=== PATIENT | male | born 1965 | race Caucasian/White ===

== ENCOUNTER → 2018-07-03 09:13 | Outpatient (CLI) | payer BC, SELFPAY | PROVIDERS: PCP Family Medicine; Visit Provider Family Medicine | DX: R07.9 Chest pain, unspecified (principal); R00.2 Palpitations; E66.01 Morbid (severe) obesity due to excess calories | CPT/HCPCS: 93017 ==

== ENCOUNTER → 2018-07-14 07:25 | Outpatient (CLI) | payer BC, SELFPAY ==
--- NOTE | 2018-07-14 07:27 | NM_ITS ---
CARDIOLITE SPECT MYOCARDIAL PERFUSION [facility], REST AND STRESS: History: Obesity, abnormal stress test, Procedure: Patient exercised on Loi protocol 9 minutes and 11 seconds, resting heart rate was 62 bpm resting blood pressure 161/86, with exercise maximum heart rate achieved was 1 49 bpm which is greater than 85% of the maximum predicted heart rate and a blood pressure was 206/71. Test was started due to fatigue patient denied any complained of chest pain. Patient has good exercise capacity achieved 10.1mets of workload on treadmill, the blood pressure response to exercise was hypertensive. Electrocardiogram: Resting electrocardiogram showed sinus rhythm, with exercise occasional premature ventricular complexes, there is [address] segment depression noted in the inferior leads. The EKG portion of the exercise Myoview is positive for ischemia. Cardiac stress and resting SPECT images: Cardiac stress and resting SPECT images were obtained using technetium 99 Myoview 32.6 mCi at stress and 10.5 mCi at rest. Gated SPECT further analysis of segmental wall motion and calculation of the ejection fraction also done. Cardiac stress and resting SPECT images show uniform myocardial activity without segmental perfusion abnormality, computer derived ejection fraction is 64% with no regional wall motion abnormality, right ventricle is normal size and contractility. Conclusion: 1. The EKG portion of the exercise Myoview is positive for ischemia, patient has good exercise capacity achieved 10.1mets of workload on treadmill, the blood pressure response to exercise was hypertensive, there was no exercise-induced chest discomfort. 2. No scintigraphic evidence of reversible ischemia seen at this level of exercise, computer derived ejection fraction is 64% with no regional wall motion abnormality, right ventricle is normal size and contractility.
--- NOTE | 2018-07-14 07:56 | HMH.ITSHM ---
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 [][facility] [employer]
== END ==
PROVIDERS: PCP Family Medicine; Visit Provider Family Medicine
DX: R94.39 Abnormal result of other cardiovascular function study (principal)
CPT/HCPCS: 78452; 93017; A9502

== ENCOUNTER → 2019-06-16 10:08 | Outpatient (CLI) | payer BC, SELFPAY ==
--- NOTE | 2019-06-16 10:16 | XR_ITS ---
PROCEDURE: XR FOOT LT MIN 3V CLINICAL INDICATION: LT HEEL PAIN COMPARISON: No exams were available for comparison FINDINGS: No fracture or dislocation. No lytic or blastic change. There is normal mineralization. The joint spaces are well-preserved. No significant degenerative/arthritic changes. No erosive changes evident. Other findings:There is a small calcaneal spur. There is an os cuboid a as a normal variant IMPRESSION: No acute findings. Dictated by: Ilya Rosenthal MD 06/16/2019 11:20 Electronically signed by Ilya Rosenthal MD in [place] 06/16/2019 11:20
== END ==
PROVIDERS: PCP Family Medicine; Visit Provider Family Medicine
DX: M72.2 Plantar fascial fibromatosis (principal); M79.672 Pain in left foot
CPT/HCPCS: 73630

== ENCOUNTER → 2020-08-26 10:43 | Outpatient (CLI) | payer BC, SELFPAY | PROVIDERS: PCP Family Medicine; Visit Provider Nurse Practitioner Family | DX: Z20.822 Contact with and (suspected) exposure to COVID-19 (principal) | CPT/HCPCS: U0003 ==

== ENCOUNTER 2021-01-19 08:33 | Emergency (ER) | payer BC, SELFPAY ==
[2021-01-19 08:44] VITALS: BP 132/66; PULSE 68; RESP 18; TEMP 36.8; O2SAT 96; BMI 37.5
--- NOTE | 2021-01-19 08:51 | XR_ITS ---
PROCEDURE: XR FOOT LT MIN 3V CLINICAL INDICATION: pain- hit foot on water meter COMPARISON: CR XR FOOT LT MIN 3V from 06/16/2019 FINDINGS: No fracture or dislocation. No lytic or blastic change. There is normal mineralization. The joint spaces are well-preserved. No significant degenerative/arthritic changes. No erosive changes evident. Other findings:None. IMPRESSION: No acute findings. Dictated by: Ilya Rosenthal MD 01/19/2021 09:16 Ilya Rosenthal MD in [place] 01/19/2021 09:16
--- NOTE | 2021-01-19 09:02 | HMH.EDGENADL ---
ED Disposition Clinical Impression: Contusion of left foot Qualifiers: Encounter type: initial encounter Qualified Code(s): S90.32XA - Contusion of left foot, initial encounter Sprain of left foot Qualifiers: Encounter type: initial encounter Qualified Code(s): S93.602A - Unspecified sprain of left foot, initial encounter Disposition: Home, Self-Care Condition on Discharge: Good Instructions: DI for Foot Sprain, DI for Contusion Additional Instructions: Continue orthopedic boot and pain. Ice 20 minutes 4-5 times a day, elevate foot. [id number] ibuprofen for pain, swelling, and inflammation. Follow-up with Dr. Fall, podiatry, if not improved by Saturday. Referrals: Donnie Acuna MD [Primary Care Provider] - Elin Fall DPM [Staff Physician] - - Critical Care Critical Care Time: No Attestation: On 01/19/21, the high probability of a clinically significant, sudden or life threatening deterioration of the following system(s) required my full and direct attention, intervention and personal management. The time I documented below is in addition to time spent performing reported procedures but includes the following listed in this critical care notation. Medical Decision Making - Jorge Inquiry Pt receiving controlled substance: No Vital Signs: 01/19/21 08:44 Temperature 98.3 F Temperature Source Oral Pulse Rate [Right] 68 Respiratory Rate 18 Blood Pressure [Right Arm] 132/66 Blood Pressure Mean [Right Arm] 88 Blood Pressure Position [Right Arm] Sitting 02 Sat by Pulse Oximetry 96 Oxygen Delivery Method Room Air Orders (Tests/Meds): ORDERS Category Date Time Status XR foot LT min 3V Stat Exams 01/19/21 08:51 Taken - Radiology Data #1 Image(s): Foot/Toes Image Reviewed: Yes I reviewed the patient's radiology image Preliminary Findings: Normal/NAD General Adult HPI - General Chief complaint: PAIN Stated complaint: AO 01/18 hit lt foot on water meter, pain/swelling Time Seen by Provider: 01/19/21 09:03 Mode of Arrival: Ambulatory Limitations: No Limitations Description of Symptoms (Recalled from ER Triage Doc. by RN): Pt states he was walking through the yard at his home last night and hit his foot on a water meter in the ground. Pt states he is having pain on the lateral part of his left foot. Pt states he has a prior hx of left ankle fx x10 years ago but denies ankle pain. - History of Present Illness HPI narrative: He injured his left foot twice. On Saturday, 4 days ago he was moving a laterally when he tweaked his foot. It was getting better until last night when he was walking in the yard and hit the top of his foot on a water meter. He complains of pain on the lateral aspect of his foot. He has an orthopedic boot from a previous ankle fracture and has been wearing that and also using a cane. He also has crutches to use at home if needed. - Related Data Allergies Allergy/AdvReac Type Severity Reaction Status Date / Time No Known Allergies Allergy Verified 01/19/21 08:51 [facility] History - Hepatitis A Screen Drug use history?: No High risk sexual behaviors?: No History of sexually transmitted infection?: No Currently employed?: No Childcare worker?: No Do you have indoor plumbing?: Yes Do you have electricity?: Yes Attestation statement:: This patient has been screened for Hepatitis A risk factors. I have reviewed the patient's past medical history: Yes ROS Obtained: Yes Systems reviewed as appropriate & no additional complaints - Musculoskeletal Musculoskeletal: Reports as per HPI - Neurologic Neurologic: Denies numbness, Denies weakness Physical Exam - General General appearance: alert, in no apparent distress - Respiratory Respiratory exam: Absent: respiratory distress - Cardiovascular Cardiovascular exam: Present: regular rate, normal rhythm - Extremities Exam Extremities exam: Present: normal capillary refill - Expanded Lower E
[2021-01-19 09:32] VITALS: BP 126/79; PULSE 62; RESP 18; TEMP 36.8; O2SAT 95
== END 2021-01-19 09:33 | disposition home or self-care (01) ==
PROVIDERS: Emergency Provider Emergency Medicine; PCP Family Medicine
DX: S90.32XA Contusion of left foot, initial encounter (principal); S93.602A Unspecified sprain of left foot, initial encounter; Z87.81 Personal history of (healed) traumatic fracture; W22.8XXA Striking against or struck by other objects, initial encounter
CPT/HCPCS: 73630; 99282

== ENCOUNTER → 2021-02-08 11:15 | Outpatient (CLI) | payer BC, SELFPAY | PROVIDERS: PCP Family Medicine; Visit Provider Nurse Practitioner | DX: Z20.822 Contact with and (suspected) exposure to COVID-19 (principal) | CPT/HCPCS: C9803; U0003; U0005 ==

== ENCOUNTER → 2021-02-21 08:41 | Outpatient (CLI) | payer BC, SELFPAY | PROVIDERS: PCP Family Medicine; Visit Provider Nurse Practitioner | DX: Z20.822 Contact with and (suspected) exposure to COVID-19 (principal) | CPT/HCPCS: C9803; U0003; U0005 ==

== ENCOUNTER → 2021-05-09 11:44 | Outpatient (CLI) | payer BC, SELFPAY | PROVIDERS: PCP Family Medicine; Visit Provider Nurse Practitioner | DX: U07.1 COVID-19 (principal) | CPT/HCPCS: C9803; U0003; U0005 ==

== ENCOUNTER → 2021-05-15 08:42 | Outpatient (CLI) | payer BC, SELFPAY | PROVIDERS: Visit Provider Nurse Practitioner | DX: U07.1 COVID-19 (principal) | CPT/HCPCS: C9803; U0003; U0005 ==

== ENCOUNTER → 2022-02-08 14:17 | Outpatient (CLI) | payer BC, SELFPAY | PROVIDERS: PCP Family Medicine; Visit Provider Family Medicine | DX: R00.2 Palpitations (principal) | CPT/HCPCS: 93225; 93226 ==

== ENCOUNTER → 2022-02-16 10:45 | Outpatient (CLI) | payer BC, SELFPAY ==
--- NOTE | 2022-02-16 | CA_ITS ---
APPROVED REPORT EXAM: Comprehensive 2D, Doppler, and color-flow Echocardiogram Weigh Machine Operator: Rekha Guzman CRT Ht: 6 ft 1 in Wt: 179lbs BSA: 2.05 BP: 140/80 mmHg Indications: Murmur, Palpitations 2D Dimensions LVOT 1.98 cm (M/F) 1.5-2.5 LA Volume 38.80 mL LA Volume Index 18.50 mL/m2 (M/F) 16-34 M-Mode Dimensions RVDd 3.08 cm (0.9-2.6) LA Diam 3.60 cm (1.9-4.0) LVDd 5.12 cm (3.5-5.7) Ao Diam 4.49 cm (2.0-3.7) LVDs 3.29 cm (3.5-5.7) IVSd 1.43 cm (0.6-1.1) PWd 1.04 cm (0.6-1.1) EF (Teich) 64.90% FS 35.70% EDV (Teich) 124.90 mL TAPSE 2.17 (<1.7) ESV (Teich) 43.80 mL LV Diastology E Decel Time 210.00 (160-240 msec) E/A Ratio 1.07 MED E' 6.50 (< 7 cm/sec) MED A' 9.20 cm/s E'/MED E' Ratio 13.08 (>14) LAT E' 8.30 (<10 cm/sec) LAT A' 14.50 cm/s E/LAT E' Ratio 10.24 (>14) Aortic Valve LVOT Max 175.00 (70-110 cm/s) LVOT VTI 43.01 cm AoV Peak Ted. 170.00 (50-130 cm/s) AO Peak GR. 11.60 mmHg AO Mean GR. 7.20 (<5 mmHg) AO VTI 37.42 (18-25 cm) CHRISTIANO (VTI) 3.54 (2.5-4.5 cm2) Mitral Valve MV A Velocity 79.00 (40-130 cm/s) E/A Ratio 1.07 MV Decel. Time 210.00 (160-240 ms) Pulmonary Valve PV Peak Velocity 107.00 (50-150 cm/s) Tricuspid Valve TR P. Velocity 263.00 cm/s RAP Estimate 10.00 mmHg RVSP 37.80 mmHg Left Ventricle Left atrium is normal size left ventricle is normal size there is no concentric left ventricular hypertrophy, estimated ejection fraction 55% with no regional wall motion abnormality. Diastolic parameters are within normal range. Right Ventricle Right atrium and right ventricle are normal size and contractility. Aortic Valve Aortic valve is grossly normal, there is no aortic stenosis or aortic insufficiency. Mitral Valve Mitral valve is grossly normal, there is trace mitral regurgitation Tricuspid Valve Tricuspid valve grossly normal, there is trace tricuspid regurgitation, tricuspid regurgitation jet velocity is inadequate for calculation of the right ventricular systolic pressure. Pulmonic Valve Pulmonic valve is poorly visualized. Great Vessels Aortic root is normal size. Inferior vena cava is poorly visualized. Pericardium No significant pericardial effusion noted. Conclusion 1. Normal left ventricular size, estimated ejection fraction 55% with no regional wall motion abnormality, diastolic parameters are within normal range. 2. Trace mitral and tricuspid regurgitation. 3. No significant pericardial effusion noted. 4. Inferior vena cava is poorly visualized. Electronically signed by : Mukesh Daigle MD 02/16/2022 13:34:51
== END ==
PROVIDERS: PCP Family Medicine; Visit Provider Family Medicine
DX: R00.2 Palpitations (principal)
CPT/HCPCS: 93306

== ENCOUNTER 2022-09-13 08:25 | Emergency (ER) | payer BC, SELFPAY ==
[2022-09-13 08:26] VITALS: BP 146/77; PULSE 62; RESP 18; TEMP 36.6; O2SAT 98; BMI 36.9
--- NOTE | 2022-09-13 08:29 | XR_ITS ---
FINAL REPORT CLINICAL HISTORY: stepped on glass, feels pain in bottom of right side of right foot COMPARISON: none FINDINGS: RIGHT FOOT: Three views of the right foot were obtained. There is no acute fracture or dislocation. Mild hallux valgus deformity. There is mild degenerative change. There is a 1 mm radiodensity adjacent to the proximal 5th metatarsal on oblique view. Small foreign body is not excluded. IMPRESSION: No acute bony abnormality. Possible small foreign body. Reviewed, Interpreted and Dictated by Shelton Tomas III, MD Transcribed by Eliz Ayala Authenticated and [facility]
--- NOTE | 2022-09-13 08:50 | EXP.UTC ---
Discharge Plan Disposition Patient Disposition: Home, Self-Care Condition: Good Prescriptions Prescriptions: No Action latanoprost 0.005 % drops Eye-Both ibuprofen 800 mg tablet 800 mg PO BID Qty: 60 3RF sulfamethoxazole-trimethoprim [Bactrim DS] 800-160 mg tablet 1 tab PO BID Qty: 20 0RF hydrocodone-acetaminophen 5-325 mg tablet 1 tab PO Q4-6H PRN (Reason: pain) 7 Days Qty: 30 0RF ondansetron 4 mg tablet,disintegrating 4 mg PO Q6H Qty: 30 2RF Referrals Follow up/Referrals: Logan Velasquez MD [Primary Care Provider] - See instructions Activity Restrictions/Add. Instructions Additional Instructions/Restrictions: Go from here to Dr. Fall's office. Clinical Impressions Clinical Impression: Foreign body in right foot Qualifiers: Encounter type: initial encounter Qualified Code(s): S90.851A - Superficial foreign body, right foot, initial encounter Instructions Patient Instructions: DI for Removal of Foreign Body From Skin Discharge ED Provider: Jaron Kaplan [facility] General Stated complaint: AO 09/10 Stepped on glass RT foot Mode of Arrival: Ambulatory Source of Information: Patient Limitations: No Limitations Time Seen by Provider: 09/13/22 08:50 Description of Symptoms (Recalled from Triage Doc. by RN): Possible glass in right foot. 09/10/22 HEENT Symptoms (Recalled from RN notes): No Resp Symptoms (Recalled from RN notes): No Skin Symptoms (Recalled from RN notes): No MS Symptoms (Recalled from RN notes): Yes Functional Status (Recalled from RN notes): wnl History of Present Illness Provider Complaint: He states that he stepped on glass about 3 days ago. Since then, he has had right foot pain in the area of where he was punctured by the glass. He denies other issues. Related Data Home Medications Medication Instructions Recorded Confirmed latanoprost 0.005 % eye drops drp Eye-Both 09/13/22 09/13/22 sulfamethoxazole 800 1 tab PO BID antibiotic 09/13/22 mg-trimethoprim 160 mg tablet (Bactrim DS) Previous Rx's Medication Instructions Recorded hydrocodone 5 mg-acetaminophen 325 1 tab PO Q4-6H PRN pain 7 days #30 09/13/22 mg tablet tabs ibuprofen 800 mg tablet 800 mg PO BID pain, mild #60 tabs 09/13/22 ondansetron 4 mg disintegrating 4 mg PO Q6H nausea and vomiting 09/13/22 tablet #30 tabs Allergies Allergy/AdvReac Type Severity Reaction Status Date / Time No Known Allergies Allergy Verified 09/13/22 10:35 Worker's Comp Is this a Worker's Comp case?: No [facility] Disclaimer: The information contained in this section may have been updated after the patient was seen, as this information can be updated by other users. Medical History (Updated 09/13/22 @ 13:51 by Patel Jackson RN) Glaucoma Surgical History (Updated 09/13/22 @ 13:52 by Patel Jackson RN) No history of previous surgery Family History (Updated 09/13/22 @ 10:36 by BORIS Vigil) Father Cancer Social History (Updated 09/13/22 @ 10:36 by BORIS Vigil) Smoking Status: Never smoker alcohol intake: never current occupational status: employed Travel in the last 8 weeks: None ROS Obtained: Yes All systems reviewed & no additional complaints except as documented Constitutional Constitutional: Denies chills and Denies fever(s) Eyes Eyes: Denies eye discharge ENT Ears, Nose, Mouth, and Throat: Denies dizziness, Denies otalgia and Denies sore throat Cardiovascular Cardiovascular: Denies chest pain Respiratory Respiratory: Denies shortness of breath, Denies chest congestion, Denies cough, Denies stridor and Denies wheezing Gastrointestinal Gastrointestingal: Denies nausea or vomiting Musculoskeletal Musculoskeletal: Reports system reviewed and no additional complaints, except as documented and Denies arthralgias Integumentary/Breasts Skin/Breast: Reports as per HPI Neurologic Neurologic: Denies dizziness and Denies paresthesias Allergic/Immuno
--- NOTE | 2022-09-13 09:58 | PC.NURSE ---
Spoke with Dr. Fall's office. Per Dr. Fall she wants the patient placed in a walking boot, crutches, and sent to her office.
[2022-09-13 10:11] VITALS: BP 146/77; PULSE 62; RESP 18; TEMP 36.6; O2SAT 98
== END 2022-09-13 10:13 | disposition home or self-care (01) ==
PROVIDERS: Emergency Provider Nurse Practitioner Family; PCP Family Medicine
DX: S90.851A Superficial foreign body, right foot, initial encounter (principal); W25.XXXA Contact with sharp glass, initial encounter
CPT/HCPCS: 73630; 99204; 99212; G0463

== ENCOUNTER → 2022-09-13 11:21 | Outpatient (CLI) | payer BC, SELFPAY ==
--- NOTE | 2022-09-13 11:42 | ECG_ITS ---
APPROVED REPORT Exam: Resting ECG HR:54 bpm ECG Measurements Heart Rate 54 AXES PA 189 P 34 QRSd 98 QRS 35 QT 443 T 39 QTc 430 Conclusion SINUS BRADYCARDIA BORDERLINE ECG UNCONFIRMED REPORT Electronically signed by : Donnie Arellano MD 09/13/2022 17:12:43
--- NOTE | 2022-09-13 11:51 | XR_ITS ---
FINAL REPORT CLINICAL HISTORY: foreign body in right foot, poss glass COMPARISON: Earlier same day FINDINGS: RIGHT FOOT: Three views of the right foot were obtained. There is no acute fracture or dislocation. The joint spaces are intact. The small radiodensity adjacent to the proximal 5th metatarsal is no longer identified and may have been removed. IMPRESSION: No acute bony abnormality. No radiopaque foreign body identified. Reviewed, Interpreted and Dictated by Shelton Tomas III, MD Transcribed by Eliz Ayala Authenticated and [facility]
[2022-09-13 11:57] LABS: Basophils % 0.4 % (0.1-2.0); Eosinophils # 0.3 K/mm3 (0.0-0.4); Eosinophils % 4.4 % (0.1-12.0); Hemoglobin 15.5 g/dL (14.1-18.0); Lymphocytes % 32.2 % (10-50); Mean Platelet Volume 8.6 fl (7.4-10.4); Monocytes # 0.5 K/mm3 (0.1-1.0); Monocytes % 7.6 % (1.7-9.3); Neutrophils # 3.4 K/mm3 (1.8-7.8); Neutrophils % 55.4 % (37.0-80.0); Platelet Count 160 K/mm3 (142-424); Red Cell Distribution Width 13.2 % (11.5-17.5); White Blood Count 6.1 K/mm3 (4.8-10.8)
[2022-09-13 12:12] LABS: Chloride 100 mmol/L (98-107)
[2022-09-13 12:13] LABS: Potassium 4.1 mmoL/L (3.5-5.1); Sodium 138 mmol/L (136-145)
[2022-09-13 12:15] LABS: Alanine Aminotransferase 57 U/L (12-78); Aspartate Amino Transferase 62 U/L (17-59); Blood Urea Nitrogen 14 mg/dl (9-20); Estimated Glomerular Filt Rate 100 ml/min (>60); GFR (African American) 121 ML/MIN (>60)
[2022-09-13 12:16] LABS: Albumin Level 4.4 g/dl (3.5-5.0); Albumin/Globulin Ratio 1.4 (1.1-1.8); Alkaline Phosphatase 82 U/L (38-126); Anion Gap 15.1 mEq/L (5-15); Bilirubin,Total 1.2 mg/dl (0.2-1.3); Calcium 8.8 mg/dl (8.4-10.2); Carbon Dioxide 27 mmol/L (22.0-30.0); Globulin 3.2 g/dL (1.3-3.2); Glucose 102 mg/dl (74-100); Total Protein,Serum 7.6 g/dl (6.3-8.2)
[2022-09-13 12:21] LABS: C-Reactive Protein 6.4 mg/L (0-4)
[2022-09-13 15:20] LABS: Erythrocyte Sedimentation Rate 18 mm/hr (0-20)
== END ==
PROVIDERS: PCP Family Medicine; Visit Provider Podiatrist
DX: Z01.818 Encounter for other preprocedural examination (principal); S90.851A Superficial foreign body, right foot, initial encounter
CPT/HCPCS: 36415; 73630; 80053; 85025; 85651; 86140; 93005

== ENCOUNTER 2022-09-13 13:07 | Day surgery (SDC) | payer BC, SELFPAY ==
[2022-09-13 12:16] VITALS: BMI 36.9
[2022-09-13 13:54] VITALS: BP 138/65; PULSE 68; RESP 18; TEMP 36.2; O2SAT 98; BMI 37.8
--- NOTE | 2022-09-13 14:49 | XR_ITS ---
FINAL REPORT CLINICAL HISTORY: C-ARM CASE, F/B REMOVAL RIGHT FOOT, ft 0.1min FINDINGS: Fluoroscopy Fluoroscopy was provided for foreign body removal of the right foot. Five spot films were obtained in 0.1 minutes of fluoroscopy time. IMPRESSION: 0.1 minutes of fluoroscopy time. Reviewed, Interpreted and Dictated by Shelton Tomas III, MD Transcribed by Lyla Shook Authenticated and [facility]
--- NOTE | 2022-09-13 16:21 | EXP.OP.NOTE ---
Date of procedure: 09/13/22 Pre-op Diagnosis:: Right foreign body Right foot edema, pain Right foot cellulitis Post-op Diagnosis:: Same Procedure performed:: Right foot foreign body removal Right foot incision and drainage Surgeon:: Elin Fall DPM Anesthesia: local (20cc 0.5% marcaine plain) Estimated blood loss (mL): 5 Clinical Note:: Patient is a 56-year-old male who stepped on a glass bowl 09/08/2022.? He thought he remove the glass at home however upon walking this week the pain is getting worse.? He went to the [facility] 09/13/22 where they made an incision attempting to get out the piece of glass.? X-ray from today correlates with the area of radiolucency and where the patient has clinical pain.? Discussed due to the incision already made, infection risk and retained foreign body would recommend a surgical procedure for foreign body removal and I&D. The patient has been instructed on the planned procedure, all risk versus benefits of the procedure discussed.? These include but are not limited to: bleeding, infection, nerve and blood vessel damage, need for further surgery, delay in healing of soft tissue or bone, prolonged pain/edema and recovery, CPRS/RSD, DVT and anesthetic complications. No guarantees were given. All questions fully answered. The patient verbalized understanding and agreed to proceed with surgery. Written consent was obtained. Necessary pre-op testing ordered: CBC, CMP, EKG, ESR, CRP. Was given crutches in the [facility].? Has a fracture boot at home. eRx for [place] 7.5mg, Zofran 4mg, Motrin 800mg, Bactrim DS x10d given. Operative findings:: Small 1 mm hard object consistent with glass removed from the plantar lateral subfifth metatarsal region of the right foot. No purulence malodor or drainage. No ascending cellulitis appreciated. Operative note:: On this date and time patient was deemed an appropriate surgical candidate. With informed consent signed, the patient was taken to the operating theater. The patient was positioned supine. No anesthesia was induced. No tourniquet was applied. Pre-op right lateral foot block given with 20 cc 0.5% marcaine plain. Right foreign body (glass) removal: Preoperatively intraoperative fluoroscopy was utilized to take images of the right foot. There is a 1 mm radiodensity adjacent to the proximal 5th metatarsal on oblique view. Report stated a small foreign body is not excluded. Bone intact with no evidence of fracture or dislocations. The right extremity was prepped and draped in normal sterile fashion. Attention was directed to the lateral right foot where previous plantar incision had been made. A new linear incision was mapped out extending approximately 1.5 x 0.2 x 0.2 cm. Dissection was carried through the skin through subcutaneous tissue with care taken to maintain surgical hemostasis and safely retract neurovascular structures. The foreign body was visible overlying the deep fascia. Using a mixture of sharp and blunt and dissection technique the glass was isolated. It was removed en total. Right foot incision and drainage: The wound was flushed with copious amounts of normal sterile saline mixed with gentamicin irrigation. Bleeding controlled. Wound was reexplored and no more glass noted. Intra-Op fluoroscopy was utilized to confirm no radiodense foreign object. There were no signs of infection. The wounds once again flushed with copious amounts of saline. 2-0 Nylon was then used to reapproximate the skin in a simple suture fashion. The wounds were cleansed. Xeroform, dry sterile dressing was then applied to the right foot. The patient was transferred to recovery with vital signs stable and neurovascular status intact. He appeared to tolerate procedure and local anesthesia well without complication. Discharge/Plan: Ok to discharge home today when vss. Patient is to maintain dressing clean dry and intact. Elevate on two pillows. Weight bearing to the right heel in fracture boot as tolerated with
[2022-09-13 16:25] VITALS: BP 150/87; PULSE 60; RESP 16; TEMP 36.4; O2SAT 99
[2022-09-13 16:37] VITALS: BP 150/87; PULSE 60; RESP 16; TEMP 36.4; O2SAT 99
== END 2022-09-13 16:37 | disposition home or self-care (01) ==
PROVIDERS: PCP Family Medicine; Visit Provider Podiatrist
PROC: (CPT 28190; principal; 2022-09-13 15:30)
DX: S90.851A Superficial foreign body, right foot, initial encounter (principal); L03.115 Cellulitis of right lower limb
CPT/HCPCS: 28190; 73620; 76000; J0696

== ENCOUNTER 2023-11-14 15:57 | Emergency (ER) | payer BC, SELFPAY ==
[2023-11-14 16:25] VITALS: BP 119/61; PULSE 60; RESP 18; TEMP 36.7; O2SAT 97; BMI 37.5
--- NOTE | 2023-11-14 16:45 | EXP.UTC ---
Discharge Plan Disposition Patient Disposition: Still a Patient Condition: Good Prescriptions Prescriptions: No Action latanoprost 0.005 % drops 1 drp Eye-Both DAILY ibuprofen 800 mg tablet 800 mg PO BID Qty: 60 3RF hydrocodone-acetaminophen 5-325 mg tablet 1 tab PO Q4-6H PRN (Reason: pain) 7 Days Qty: 30 0RF ondansetron 4 mg tablet,disintegrating 4 mg PO Q6H Qty: 30 2RF sulfamethoxazole-trimethoprim [Bactrim DS] 800-160 mg tablet 1 tab PO BID Referrals Follow up/Referrals: Logan Velasquez MD [Primary Care Provider] - See instructions Activity Restrictions/Add. Instructions Additional Instructions/Restrictions: *Monitor Temp, Over the counter Motrin or Tylenol as directed/as needed Tylenol every 4 hours and Motrin every 6 hours (as long as your family doctor has told you that you can take it) for fever or pain. and straight to ER if unable to lower temp less than 101.0 after medication given *Warm salt water gargles may help to soothe the throat *Throat Lozenges? *Warm fluids like tea with honey may help to soothe the throat? *Sleep elevated *Humidifier/Vaporizer Your throat swab was sent for culture. Those results are typically sent to your primary care. Be sure to follow up in 2-3 days with your family doctor/primary care physician if no improvement so they can review those result and treat if necessary. If you don?t have a primary care doctor, I recommend you get one but in the mean time, you will have to return to a walk in clinic Follow up IMMEDIATELY for new or worsening symptoms or no Noticeable improvement over the next 48-72 hours. 911 for difficulty breathing or swallowing You were tested for today for Upper Respiratory Panel with COVID19 your test result should be back in the next few hours, you may Check your Results on the [facility] Clinical Impressions Clinical Impression: Viral syndrome Instructions Patient Instructions: DI for Viral Syndrome Print Language Print Language: French Discharge ED Provider: Cheryle Kilgore [facility] [place] [facility] [place] General Stated complaint: Sore throat, cough Mode of Arrival: Ambulatory Source of Information: Patient Limitations: No Limitations Time Seen by Provider: 11/14/23 16:45 Description of Symptoms (Recalled from Triage Doc. by RN): Complaint of sore, scratchy throat since 11/11. Patient requesting a COVID test. HEENT Symptoms (Recalled from RN notes): Yes Resp Symptoms (Recalled from RN notes): No Skin Symptoms (Recalled from RN notes): No MS Symptoms (Recalled from RN notes): No Functional Status (Recalled from RN notes): wnl History of Present Illness Provider Complaint: Patient states that he went to a [employer] a few days ago with some work buddies and then he started having sore scratchy throat and found out several of them tested positive for COVID so he came in wanting to get tested for COVID and strep Related Data Home Medications ?Medication ?Instructions ?Recorded ?Confirmed latanoprost 0.005 % eye drops 1 drp Eye-Both DAILY eyes 09/13/22 10/01/22 sulfamethoxazole 800 1 tab PO BID antibiotic 09/13/22 10/01/22 mg-trimethoprim 160 mg tablet (Bactrim DS) Previous Rx's ?Medication ?Instructions ?Recorded hydrocodone 5 mg-acetaminophen 325 1 tab PO Q4-6H PRN pain 7 days #30 09/13/22 mg tablet tabs ibuprofen 800 mg tablet 800 mg PO BID pain, mild #60 tabs 09/13/22 ondansetron 4 mg disintegrating 4 mg PO Q6H nausea and vomiting 09/13/22 tablet #30 tabs Allergies Allergy/AdvReac Type Severity Reaction Status Date / Time No Known Allergies Allergy Verified 10/01/22 08:48 Worker's Comp Is this a Worker's Comp case?: No [facility] Disclaimer: The information contained in this section may have been updated after the patient was seen, as this information can be updated by other users. Medical History Glaucoma Surgical History No history of previous surgery Family History Father Cancer Social History Smoking Status: Never smoker alcohol intake: never current occupational status: employed Travel in the last 8 weeks: None ROS Obtained: Yes All systems reviewed & no additional complaints except as documented and Yes Systems reviewed as appropriate & no additional complaints except as documented Constitutional Constitutional: Reports system reviewed and no additional complaints, except as documented, Reports as per HPI, Denies body ache, Denies chills, Denies fever(s) and Denies headache(s) ENT Ears, Nose, Mouth, and Throat: Reports system reviewed and no additional complaints, except as documented, Reports as per HPI, Denies headache(s), Reports nasal congestion and Reports sore throat Cardiovascular Cardiovascular: Reports system reviewed and no additional complaints, except as documented and Reports as per HPI Respiratory Respiratory: Reports system reviewed and no additional complaints, except as documented and Reports as per HPI Gastrointestinal Gastrointestingal: Reports system reviewed and no additional complaints, except as documented and as per HPI Neurologic Neurologic: Denies headache(s) Physical Exam General General appearance: alert and in no apparent distress ENT ENT exam: Present mucous membranes moist Expanded ENT Exam Nose exam: Absent sinus tenderness Throat exam: Present tonsillar erythema Respiratory Respiratory exam: Present normal lung sounds bilaterally; Absent respiratory distress or wheezes Cardiovascular Cardiovascular exam: Present regular rate, normal rhythm and normal heart sounds Abdominal Exam Abdominal exam: Present soft and normal bowel sounds; Absent distention or tenderness Neurological Exam Neurological exam: Present alert, oriented X3 and normal gait Medical Decision Making Jorge Inquiry Pt receiving controlled substance: No Jorge was queried for this patient: No Vital Signs: 11/14/23 16:25 Temperature 98.0 F Temperature Source Oral Pulse Rate [Radial] 60 Respiratory Rate 18 Blood Pressure [Right Arm] 119/61 Blood Pressure Mean [Right Arm] 80 Blood Pressure Source [Right Arm] Automatic Cuff Blood Pressure Position [Right Arm] Sitting 02 Sat by Pulse Oximetry 97 Oxygen Delivery Method Room Air Lab Data Lab results reviewed: Yes I reviewed the patient's lab results.
[2023-11-14 16:50] LABS: UTC Strep Screen (Rapid) Negative (Negative)
[2023-11-14 17:06] VITALS: BP 119/61; PULSE 60; RESP 18; TEMP 36.7; O2SAT 97
[2023-11-14 18:13] LABS: Coronavirus 19, PCR Not Detected (NotDetected); Influenza A, PCR Not Detected (NotDetected); Influenza B, PCR Not Detected (NotDetected)
== END 2023-11-14 17:07 | disposition home or self-care (01) ==
PROVIDERS: Emergency Provider Nurse Practitioner; PCP Family Medicine
DX: R07.0 Pain in throat (principal); B34.9 Viral infection, unspecified; Z20.822 Contact with and (suspected) exposure to COVID-19
CPT/HCPCS: 87636; 87880; 99212; 99213; G0463

== ENCOUNTER 2024-03-20 09:07 | Outpatient (CLI) | payer BC, SELFPAY ==
--- OUTSIDE RECORDS SUMMARY | 2024-03-20 09:10 | XMS_ITS ---
Author Organization [facility] Address [address] [facility] 36 [facility] [address] [place] [id number] Care Team Providers Care Fire Control Technician B Name Role Phone Logan Velasquez Unavailable [phone] REASON FOR VISIT Message MEDICATIONS Medication SIG (Take, Route, Fr equency, Duration) Notes Start Date End Date Status Phos-NaK 280-160-250 MG 1 packet mixed w ith water or juice Orally Two times a day for 30 day(s) 02/19/2024 Active Encounters Encounter Location Date Provider Diagnosis [facility] [address] [facility] 36 [facility] [address] [place] [phone] 02/21/2024 Logan Velasquez Hypophosphatemia E83 .39 ASSESSMENTS Encounter Date Diagnosis Assessment Notes Treatment Notes Treatment Clinical Notes 02/21/2024 Hypophosphatemia (ICD-10 - E83.39) PLAN OF TREATMENT Medication Medication Name Sig Start Date Stop Date Notes Phos-NaK 280-160-250 MG 1 packet mixed w ith water or juice Orally Two times a day for 30 day(s) 02/19/2024 Next Appt Details Provider Name:Logan Atkinson ry, 05/20/2024 09:15:00 AM, [address] [facility] 36 [facility], [address], [place], [phone],
--- OUTSIDE RECORDS SUMMARY | 2024-03-20 09:11 | XMS_ITS | Encounter Summary ---
Author Organization [facility] Address [address] [place] [id number] Care Team Providers Care Die Cutting Machine Operator Name Role Phone Donnie Acuna MD Primary Care Provider + Reason for Visit * Reason Comments Establish Care Previous [place] pt R knee pain lab order for possibly hypoglycemic even ts Encounter Details Date Type Department Care Team (Late st Contact Info) Description 09/06/2021 9:00 AM EDT Office Visit [facility] [address] [place] [address] Donnie Acuna MD [address] [place] [address] Annual physical exam (Primary Dx); Swelling of joint of right knee; Class 2 obesity due to excess calories without serious comorbidity with body mass index (BMI) of 37.0 to 37.9 in adult; Screening for diabetes mellitus; Screening for cholesterol level Social History Tobacco Use Types Packs/Day Years Used Date Smoking Tobacco: Former Cigarettes Q uit: 1990 Smokeless Tobacco: Former Quit: 1983 PHQ-2 Answer Date Recorded Retired PHQ-9: Brief Depression Severity Measure Score 0 09/06/2021 Sex and Gender Information Value Date Recorded Sex Assigned at Not on file Legal Sex Male 2:19 PM EDT Gender Identity Not on file Sexual Orientation Not on file documented as of this encounter Last Filed Vital Signs Vital Sign Reading Time Taken Comments Blood Pressure 120/80 09/06/2021 9:11 AM EDT Pulse 72 09/06/2021 9:11 AM EDT Temperature 36.5 ??C (97.7 ??F) 09/06/2021 9:11 AM ED T Respiratory Rate 20 09/06/2021 9:11 AM EDT Oxygen Saturation - - Inhaled Oxygen Concentration - - Weight 129 kg (285 lb) 09/06/2021 9:11 AM EDT Height 185.4 cm (6' 1 ) 09/06/2021 9:11 AM EDT Body Mass Index 37.6 09/06/2021 9:11 AM EDT documented in this encounter Patient Instructions * Attachments The following attachments cannot be sent through Care Everywhere. * Calorie Counting for Weight Loss (Divehi) * Semaglutide Injection (Weight Management) (Divehi) * Obesity Adult (Divehi) * Health Maintenance Male (Divehi) documented in this encounter Progress Notes * Donnie Acuna MD - 09/06/2021 9:32 AM EDTAssociated Problem(s): Class 2 obesity due to excess calories without serious comorbidity in adult Patient's (Body mass index is 37.6 kg/m??.) indicates that they are obese (BMI >30) with health conditions that include none . Weight is unchanged. BMI is is above average; BMI management plan is completed. We discussed low calorie, low carb based diet program, portion control, increasing exercise and pharmacologic options including Contrave, Qsymia, Saxenda, Wegovy. Long discussion was had about the patient's weight. He likely has a nutritional counseling plan covered through his employer ([employer]). I encouraged him to investigate this to take advantage of what ever options are available. Patient will remain active with hiking. Fortunately at present patient's weight is not presenting any significant health problems. * Donnie Acuna MD - 09/06/2021 9:00 AM EDT Chief Complaint Patient presents with ??? Establish Care Previous [place] pt ??? R knee pain ??? lab order for possibly hypoglycemic events Subjective Jaron Sandoval is a 55 y.o. who presents for annual physical. He has two concerns. One is rightr knee tightness. The other is what he believes may be hypoglycemi described as breaking out in a sweat and feeling acutely hungry. Symptoms resolve with consumption of food. Past medical history, surgical history, social history, family history, allergies reviewed and updated Review of systems positive as above otherwise review of systems asked and answered is negative Objective Vital Signs: BP 120/80 Pulse 72 Temp 97.7 ??F (36.5 ??C) Resp 20 Ht 185.4 cm (73 ) Wt 129 kg (285 lb) BMI 37.60 kg/m?? Physical Exam Constitutional: General: He is not in acute distress. Appearance: Normal appearance. He is obese. He is not ill-appearing. HENT: Head: Normocephalic and atraumatic. Right Ear: Tympanic membrane and ear canal normal. Left Ear: Tympanic membrane and ear canal normal. Nose: Nose normal. Mouth/Throat: Mouth: Mucous membranes are moist. Pharynx: No posterior oropharyngeal erythema. Eyes: Extraocular Movements: Extraocular movements intact. Conjunctiva/sclera: Conjunctivae normal. Pupils: Pupils are equal, round, and reactive to light. Cardiovascular: Rate and Rhythm: Normal rate and regular rhythm. Pulses: Normal pulses. Heart sounds: Normal heart sounds. Pulmonary: Effort: Pulmonary effort is normal. No respiratory distress. Breath sounds: Normal breath sounds. Abdominal: General: Abdomen is flat. Bowel sounds are normal. Palpations: Abdomen is soft. Tenderness: There is no abdominal tenderness. Musculoskeletal: General: Normal range of motion. Cervical back: Normal range of motion and neck supple. Right knee: Effusion present. Comments: Mild right knee palpated medially Lymphadenopathy: Cervical: No cervical adenopathy. Skin: General: Skin is warm and dry. Capillary Refill: Capillary refill takes less than 2 seconds. Neurological: General: No focal deficit present. Mental Status: He is alert and oriented to person, place, and time. Mental status is at baseline. Cranial Nerves: No cranial nerve deficit. Sensory: No sensory deficit. Motor: No weakness. Psychiatric: Mood and Affect: Mood normal. Behavior: Behavior normal. Thought Content: Thought content normal. Judgment: Judgment normal. Result Review Assessment and Plan Diagnoses and all orders for this visit: 1. Annual physical exam (Primary) Comments: Discussed healthy behaviors for an adult. Handout given 2. Swelling of joint of right knee Comments: Right knee swelling should resolve with time. May use ibuprofen if needed 3. Class 2 obesity due to excess calories without serious comorbidity with body mass index (BMI) of37.0 to 37.9 in adult Assessment & Plan: Patient's (Body mass index is 37.6 kg/m??.) indicates that they are obese (BMI >30) with health conditions that include none . Weight is unchanged. BMI is is above average; BMI management plan is completed. We discussed low calorie, low carb based diet program, portion control, increasing exercise and pharmacologic options including Contrave, Qsymia, Saxenda, Wegovy. Long discussion was had about the patient's weight. He likely has a nutritional counseling plan covered through his employer ([employer]). I encouraged him to investigate this to take advantage of what ever options are available. Patient will remain active with hiking. Fortunately at present patient's weight is not presenting any significant health problems. Orders: - Hemoglobin A1c - Comprehensive Metabolic Panel - Lipid Panel 4. Screening for diabetes mellitus - Hemoglobin A1c 5. Screening for cholesterol level - Lipid Panel Follow Up Return in about 1 year (around 09/06/2022). Patient was given instructions and counseling regarding his condition or for health maintenance advice. Please see specific information pulled into the AVS if appropriate. documented in this encounter Plan of Treatment Not on file documented as of this encounter Procedures Procedure Name Priority Date/Time Associated Diagnosis Comments HEMOGLOBIN A1C Routine 09/06/2021 9:53 AM EDT Class 2 obesity due to excess calories without serious comorbidity with body mass index (BMI) of 37.0 to 37.9 in adult Screening for diabetes mellitus LIPID PANEL Routine 09/06/2021 9:53 AM EDT Class 2 obesity due to excess calories without serious comorbidity with body mass index (BMI) of 37.0 to 37.9 in adult Screening for cholesterol level COMPREHENSIVE METABOLIC PANEL Routine 09/06/2021 9:53 AM EDT Class 2 obesity due to excess calories without serious comorbidity with body mass index (BMI) of 37.0 to 37.9 in adult documented in this encounter Results * Lipid Panel (09/06/2021 9:53 AM EDT) Total Cholesterol 143 0 - 200 mg/dL [facility] Comment: Cholesterol Reference Ranges (U.S. Department of Health and Human Services ATP III Classifications) Desirable ?<200 mg/dL Borderline High ?200-239 mg/dL High Risk ?>240 mg/dL Triglyceride Reference Ranges (U.S. Department of Health and Human Services ATP III Classifications) Normal ? <150 mg/dL Borderline High ??150-199 mg/dL High ? 200-499 mg/dL Very High ?>500 mg/dL HDL Reference Ranges (U.S. Department of Health and Human Services ATP III Classifications) Low ? <40 mg/dl (major risk factor for CHD) High ?>60 mg/dl ('negative' risk factor for CHD) LDL Reference Ranges (U.S. Department of Health and Human Services ATP III Classifications) Optimal ?<100 mg/dL Near Optimal ? 100-129 mg/dL Borderline High ??130-159 mg/dL High ? 160-189 mg/dL Very High ?>189 mg/dL Triglycerides 104 0 - 150 mg/dL [facility] HDL Cholesterol 43 40 - 60 mg/dL [facility] VLDL Cholesterol Aditya 19 5 - 40 mg/dL [facility] LDL Chol Calc (NIH) 81 0 - 100 mg/dL [facility] Blood 09/06/2021 9:53 AM EDT 09/06/2021 Narrative [facility] ([facility]) - 09/06/2021 8:08 PM EDT Performed at: ??[address] - [address] [id number] Family Development Extension Specialist: Sonido Velasquez MD, Phone: ??[phone] Patient Fasting: ??Y us Donnie Acuna MD LAB BLOOD ORDERABLES Fin al Result [facility] [address] [place] [address], [facility] [address] [place] [address], * Comprehensive Metabolic Panel (09/06/2021 9:53 AM EDT) [facility] Glucose 99 65 - 99 mg/dL [facility] BUN 14 6 - 20 mg/dL [facility] Creatinine 0.92 0.76 - 1.27 mg/dL [facility] EGFR Result 97.6 >60.0 mL/min/1.7 3 [facility] Comment: National Kidney Foundation and Canadian Society of Nephrology (ASN) Task Force recommended calculation based on the Chronic Kidney Disease Epidemiology Collaboration (CKD-EPI) equation refit without adjustment for race. GFR Normal >60 Chronic Kidney Disease <60 Kidney Failure <15 BUN/Creatinine Ratio 15.2 7.0 - 25.0 [facility] Sodium 139 136 - 145 mmol/L [facility] Potassium 4.2 3.5 - 5.2 mmol/L [facility] Chloride 104 98 - 107 mmol/L [facility] Total CO2 24.8 22.0 - 29.0 mmol/L [facility] Calcium 9.1 8.6 - 10.5 mg/dL [facility] Total Protein 7.5 6.0 - 8.5 g/dL [facility] Albumin 4.20 3.50 - 5.20 g/dL [facility] Globulin 3.3 gm/dL [facility] A/G Ratio 1.3 g/dL [facility] Total Bilirubin 1.0 0.0 - 1.2 mg/dL [facility] Alkaline Phosphatase 92 39 - 117 U/L [facility] AST (SGOT) 38 1 - 40 U/L [facility] ALT (SGPT) 41 1 - 41 U/L [facility] Blood 09/06/2021 9:53 AM EDT 09/06/2021 Narrative [facility]) - 09/06/2021 8:08 PM EDT Performed at: ??01 - [facility] [address] [place], [place] [id number] Family Development Extension Specialist: Sonido Velasquez MD, Phone: ??[phone] Patient Fasting: ??Y Donnie Acuna MD LAB BLOOD ORDERABLES Fin al Result Performing Organization Address City/[facility] Co de Phone Number [facility] [address] [place] [address], [place] [phone] [facility] [address] [place] [address], [place] [phone] * Hemoglobin A1c (09/06/2021 9:53 AM EDT) [facility] Hemoglobin A1C 5.50 4.80 - 5.60 % [facility] Comment: Hemoglobin A1C Ranges: Increased Risk for Diabetes ??5.7% to 6.4% Diabetes ? >= 6.5% Diabetic Goal ?< 7.0% Blood 09/06/2021 9:53 AM EDT 09/06/2021 Narrative [facility] - 09/06/2021 8:08 PM EDT Performed at: ??01 - [facility] [address] [place], [place] [id number] Family Development Extension Specialist: Sonido Velasquez MD, Phone: ??[phone] Patient Fasting: ??Y Donnie Acuna MD LAB BLOOD ORDERABLES Fin al Result Performing Organization Address [facility] de Phone Number [facility] (AMBULAT[facility]) [address] [place] [address], [place] [phone] [facility] [address] [place] [address], [place] [phone] documented in this encounter Visit Diagnoses Diagnosis Annual physical exam- Primary Routine general medical examination at a health care facility Swelling of joint of right knee Class 2 obesity due to excess calories without serious comorbidity with body mass index (BMI) of 37.0 to 37.9 in adult Screening for diabetes mellitus Screening for cholesterol level documented in this encounter Care Teams Die Cutting Machine Operator Relationship Specialty Start Date End Date Donnie Acuna MD [address] [facility] [place] [address] PCP - General Family Medicine 09/06/21 documented as of this encounter
--- OUTSIDE RECORDS SUMMARY | 2024-03-20 09:11 | XMS_ITS | Encounter Summary ---
Author Organization [facility] Address [address] [place] [address] Care Team Providers Care Needle Punch Operator Name Role Phone Donnie Acuna MD Primary Care Provider [phone] Encounter Details Date Type Department Care Team (Latest Contact Info) Description 12/07/2022 Travel Social History Tobacco Use Types Packs/Day Years Used Date Smoking Tobacco: Former Sex and Gender Information Value Date Recorded Sex Assigned at Not on file Legal Sex Male 8:43 PM EDT Gender Identity Not on file Sexual Orientation Not on file documented as of this encounter Plan of Treatment Not on file documented as of this encounter Visit Diagnoses Not on filedocumented in this encounter Additional Health Concerns Assessment Noted Time A Body Mass Index follow-up plan has been documented for the patient 11/15/2023 12:21 PM EDT documented as of this encounter Care Teams Needle Punch Operator Relationship Specialty Start Date End Date Donnie Acuna MD [address] [place] [address] [place] [address] PCP - General 09/02/20 documented as of this encounter
--- OUTSIDE RECORDS SUMMARY | 2024-03-20 09:11 | XMS_ITS | Encounter Summary ---
Author Organization [facility] Address [address] [place] [address] Care Team Providers Care Manufacturing Coordinator Name Role Phone Donnie Acuna MD Primary Care Provider [phone] Encounter Details Date Type Department Care Team (Late st Contact Info) Description 01/16/2022 Immunization [facility] [address] [place] [id number] Simin Scott, PharmD Flu vaccine need (Primary Dx) Social History Tobacco Use Types Packs/Day Years Used Date Smoking Tobacco: Former Sex and Gender Information Value Date Recorded Sex Assigned at Not on file Legal Sex Male 8:43 PM EDT Gender Identity Not on file Sexual Orientation Not on file documented as of this encounter Plan of Treatment Not on file documented as of this encounter Visit Diagnoses Diagnosis Flu vaccine need- Primary documented in this encounter Additional Health Concerns Assessment Noted Time A Body Mass Index follow-up plan has been documented for the patient 11/15/2023 12:21 PM EDT documented as of this encounter Care Teams Manufacturing Coordinator Relationship Specialty Start Date End Date Donnie Acuna [place] [address] PCP - General 09/02/20 documented as of this encounter
--- OUTSIDE RECORDS SUMMARY | 2024-03-20 09:11 | XMS_ITS ---
Author Organization [facility] Address [address] [facility] 36 [facility] [address] [place] [id number] Care Team Providers Care Vp Corporate Development Name Role Phone Logan Velasquez Unavailable [phone] REASON FOR VISIT LAB RESULTS Encounters Encounter Location Date Provider Diagnosis [facility] [facility] [address] [facility] [address] [place] [phone] 01/22/2024 Logan Velasquez PLAN OF TREATMENT Next Appt Details Provider Name:Logan Atkinson ry, 05/20/2024 09:15:00 AM, [address] [facility], [address], [place], [phone],
--- OUTSIDE RECORDS SUMMARY | 2024-03-20 09:11 | XMS_ITS | Encounter Summary ---
Author Organization [facility] Address [address] [place] [address] Care Team Providers Care Outpatient Surgery Rn Name Role Phone Donnie Acuna MD Primary Care Provider [phone] Encounter Details Date Type Department Care Team (Late st Contact Info) Description 01/16/2022 4:50 PM EDT Office Visit [facility] [address] [place] [address] Simin Scott, PharmD Need for COVID-19 vaccine (Primary Dx) Social History Tobacco Use Types Packs/Day Years Used Date Smoking Tobacco: Former Sex and Gender Information Value Date Recorded Sex Assigned at Not on file Legal Sex Male 8:43 PM EDT Gender Identity Not on file Sexual Orientation Not on file documented as of this encounter Miscellaneous Notes * Clinician Note - Simin Scott - 01/16/2022 4:50 PM EDT Vaccine documented in this encounter Plan of Treatment Not on file documented as of this encounter Visit Diagnoses Diagnosis Need for COVID-19 vaccine- Primary documented in this encounter Additional Health Concerns Assessment Noted Time A Body Mass Index follow-up plan has been documented for the patient 11/15/2023 12:21 PM EDT documented as of this encounter Care Teams Outpatient Surgery Rn Relationship Specialty Start Date End Date Donnie Acuna MD [address] [place] [address] PCP - General 09/02/20 documented as of this encounter
--- OUTSIDE RECORDS SUMMARY | 2024-03-20 09:11 | XMS_ITS | Clinical Summary ---
Author Organization Healthcare Address [address] [place] [address] Care Team Providers Care Head Gauge Unit Operator Name Role Phone Donnie Acuna MD Primary Care Provider [phone] Encounters Date Type Department Care Team Description 12/27/2023 2:15 PM EDT [facility]ization [facility] [address] [place] [address] Need for COVID-19 vaccine (Primary Dx); Need for immunization against influenza from Last 3 Months Immunizations Name Administration Dates Next Due Influenza, Unspecified 01/22/2019,2017,02/01/2017,2015,02/01/2015 Influenza, injectable, quadr ivalent, preservative free 01/16/2022,03/13/2021,03/16/2020 Influenza, seasonal, injecta ble, preservative free 12/27/2023 Pfizer Covid-19 Vaccine 12y+ , Ross Protein, PF, Ulysses-Sucrose 12/27/2023 Pfizer-BioNTech COVID-19 Biv alent (Dixon Cap) 12+ years (ulysses-sucrose) 01/16/2022 Pfizer-BioNTech COVID-19 Vac cine (Angulo Cap) 12+ years (ulysses-sucrose) 09/12/2021 Pfizer-BioNTech COVID-19 Vac cine (Purple Cap) 12+ 01/17/2021,05/25/2020,05/03/2020 Family History Medical History Relation Name Comments Conversions - Other Mother Healthy adult Relation Name Status Comments Mother Social History Tobacco Use Types Packs/Day Years Used Date Smoking Tobacco: Former Sex and Gender Information Value Date Recorded Sex Assigned at Not on file Legal Sex Male 8:43 PM EDT Gender Identity Not on file Sexual Orientation Not on file Last Filed Vital Signs Vital Sign Reading Time Taken Comments Blood Pressure 142/86 05/08/2017 9:29 AM EST Pulse 74 05/08/2017 9:29 AM EST Temperature - - Respiratory Rate - - Oxygen Saturation - - Inhaled Oxygen Concentration - - Weight 129 kg (285 lb 0.2 oz) 05/08/2017 9:29 AM EST Height 184.2 cm (6' 0.5 ) 05/08/2017 9:29 AM EST Body Mass Index 38.12 05/08/2017 9:29 AM EST Plan of Treatment Health Maintenance Due Date Last Done Comments [facility]-Depression Screening 1964 [facility]-HIV Screening 1964 [facility]-Hepatitis C Screening 1964 [facility]-Infant/Child/Adol SDOH Screenings 1964 [facility]- SDOH Screenings 1982 [facility]-Adult SDOH Screenings 1982 [facility]-DTaP,Tdap,and Td Vaccines (3 - Tdap) 12/17/1983 11/21/1968, 12/12/1966 [facility]-Hepatitis B Vaccines (1 of 3 - 19+ 3-dose series) 12/17/1983 CT Colonography 2009 FIT-DNA 2009 FIT 2009 FOBT 2009 Sigmoidoscopy 2009 [facility]-Zoster Vaccines (1 of 2) 2014 Colonoscopy 09/06/2027 09/05/2017 [facility]-Colorectal Cancer Screening 09/06/2027 [facility]-RSV Vaccine: 60+ Years or (1 - 1-dose 75+ series) 12/17/2039 QSE-[id number]-05 Vaccine Completed 12/27/2023, 01/07/2023, 01/16/2022, Additional history exists [facility]-Influenza Vaccine Completed 12/27/2023 , 01/07/2023, 01/16/2022, Additional history exists [facility]-HIB Vaccines Aged Out No longer e ligible based on patient's age to complete this topic [facility]-HPV Vaccines Aged Out No longer e ligible based on patient's age to complete this topic [facility]-Hepatitis A Vaccines Aged Out No longer eligible based on patient's age to complete this topic [facility]-IPV Vaccines Aged Out No longer e ligible based on patient's age to complete this topic [facility]-Pneumococcal Vaccine: Pediatrics (0 to 5 Years) and At-Risk Patients (6 to 64 Years) Aged Out No longer eligible based on patient's age to complete this topic [facility]-Rotavirus Vaccines Aged Out No lo nger eligible based on patient's age to complete this topic Procedures Procedure Name Priority Date/Time Associated Diagnosis Comments COLONOSCOPY 09/05/2017 from Last 3 Months or Most Recently Relevant to Health Maintenance Results * COLONOSCOPY (09/05/2017) Anatomical Region Laterality Modality Endoscopy Narrative 09/05/2017 Ordered by an unspecified provider. Historical Provider GI PROCEDURE ORDERABLES F inal Result from Last 3 Months or Most Recently Relevant to Health Maintenance Care Teams Head Gauge Unit Operator Relationship Specialty Start Date End Date Donnie Acuna MD [facility] [place] [address] PCP - General 09/02/20
--- OUTSIDE RECORDS SUMMARY | 2024-03-20 09:11 | XMS_ITS | Clinical Summary ---
Author Organization [facility] Address [address] [place] [address] Care Team Providers Care Financial Sales Assistant Name Role Phone Donnie Acuna MD Primary Care Provider + Allergies No known active allergies Medications TIMOLOL MALEATE OP Apply to eye(s) as directed by provider. Active Active Problems Problem Noted Date Diagnosed Date Class 2 obesity due to exces s calories without serious comorbidity in adult 09/06/2021 Assessment & Plan (09/06/2021 10:14 AM EDT): Patient's (Body mass index is 37.6 kg/m??.) [...] nutritional counseling plan covered through his employer ([employer]). I encouraged him to investigate this to take advantage of what ever options are available. Patient will remain active with hiking. Fortunately at present patient's weight is not presenting any significant health problems. Immunizations Name Administration Dates Next Due Fluzone (or Fluarix & Flulav al for VFC) >6mos 03/13/2021,03/16/2020 Influenza, Unspecified 01/22/2019,2017,02/01/2017,2015,02/01/2015 Family History Medical History Relation Name Comments Cancer Father lung Obesity Father No Known Problems Mother Relation Name Status Comments Father Mother Social History Tobacco Use Types Packs/Day Years Used Date Smoking Tobacco: Former Cigarettes Q uit: 1990 Smokeless Tobacco: Former Quit: 1983 PHQ-2 Answer Date Recorded Retired PHQ-9: Brief Depression Severity Measure Score 0 09/06/2021 Abuse Screen Answer Date Recorded Unsafe at Home or Work/School Not on file Feels Threatened by Someone? Not on file Does Anyone Keep You from Co ntacting Others or Doint Things Outside the Home? Not on file 02/01/2023 Physical Sign of Abuse Present Not on file 1 Housing Stability Answer Date Recorded Current Living Arrangements Not on file 01/20 Potentially Unsafe Housing Conditions Not on rebel e 02/01/2023 Family and Community Support Answer Max e Recorded Help with Day-to-Day Activities Not on file 02/01/2023 Lonely or Isolated Not on file 02/01/2023 Employment Answer Date Recorded Do you want help finding or keeping work or a mary ellen b? Not on file 02/01/2023 Disabilities Answer Date Recorded Concentrating, Remembering, or Making Decisions Difficulty Not on file 02/01/2023 Doing Errands Independently Difficulty Not on fi le 02/01/2023 Education Answer Date Recorded Help with school or training? Not on file Preferred Language Not on file 02/01/2023 Sex and Gender Information Value Date Recorded [...] Mass Index 37.6 09/06/2021 9:11 AM EDT Plan of Treatment Health Maintenance Due Date Last Done Comments COLOGUARD 1965 COLON CANCER SCREENING [address] COLONOGRAPHY 1965 FECAL OCCULT BLOOD TEST 1965 FIT Testing (1 year) 1964 TDAP/TD VACCINES (1 - Tdap) 12/17/1983 ZOSTER VACCINE (1 of 2) 2014 HEPATITIS C SCREENING 09/06/2021 ANNUAL PHYSICAL 09/06/2022 09/06/2021 INFLUENZA VACCINE 10/21/2023 03/13/2021, , 01/22/2019, Additional history exists COVID-19 Vaccine ( season) 2023 01/17/2021, 05/25/2020, 05/03/2020 COLONOSCOPY 09/06/2027 09/05/2017 COLORECTAL CANCER SCREENING 09/06/2027 Pneumococcal Vaccine 0-64 Aged Out No longer eligible based on patient's age to complete this topic Insurance [facility] PPO Care Teams Financial Sales Assistant Relationship Specialty Start Date End Date Donnie Acuna MD [address] [place] [address] PCP - General Family Medicine 09/06/21
--- OUTSIDE RECORDS SUMMARY | 2024-03-20 09:11 | XMS_ITS | Encounter Summary ---
Author Organization Healthcare Address [address] [place] [address] Care Team Providers Care Receiving Distribution Station Operator Name Role Phone Donnie Acuna MD Primary Care Provider [phone] Encounter Details Date Type Department Care Team (Latest Contact Info) Description 01/17/2021 3:50 PM EDT [facility] [address] [place] [address] Encounter for immunization (Primary Dx) Social History Tobacco Use Types Packs/Day Years Used Date Smoking Tobacco: Former Sex and Gender Information Value Date Recorded Sex Assigned at Not on file Legal Sex Male 8:43 PM EDT Gender Identity Not on file Sexual Orientation Not on file documented as of this encounter Plan of Treatment Not on file documented as of this encounter Visit Diagnoses Diagnosis Encounter for immunization- Primary documented in this encounter Care Teams Receiving Distribution Station Operator Relationship Specialty Start Date End Date Donnie Acuna MD [address] [place] [address] PCP - General 09/02/20 documented as of this encounter
--- OUTSIDE RECORDS SUMMARY | 2024-03-20 09:11 | XMS_ITS | Encounter Summary ---
Author Organization Healthcare Address [address] [place] [address] Care Team Providers Care Gas Load Dispatcher Name Role Phone Donnie Acuna MD Primary Care Provider [phone] Encounter Details Date Type Department Care Team (Latest Contact Info) Description 09/12/2021 3:25 PM EDT [facility] [address] [place] [address] Need for COVID-19 vaccine (Primary Dx) Social [...] COVID-19 vaccine- Primary documented in this encounter Care Teams Gas Load Dispatcher Relationship Specialty Start Date End Date Donnie Acuna MD [address] [place] [address] PCP - General 09/02/20 documented as of this encounter
--- OUTSIDE RECORDS SUMMARY | 2024-03-20 09:11 | XMS_ITS | Patient Health Record ---
Author Organization [facility] Address [address] [facility] [address] [place] [id number] Care Team Providers Care Through Freight Engineer Name Role Phone Logan Velasquez Unavailable [phone] ALLERGIES No Known Allergies RESULTS Component Value Reference Range Notes P-Uric Acid Reviewed date:01/21/2024 10:13:15 AM Interpretation: Normal Performing Lab: Notes/Report: Test performed by [facility] [address] [place] [address] , [address], [place] [address] Gael Garcia MD, Driver/Merchandiser CLIA: [id number] Uric Acid 6.0 3.4-8.0 mg/dL P-Microalbumin/Creatinine, R andom Urine Sample Reviewed date:01/21/2024 10:13:15 AM Interpretation: Normal Performing Lab: Notes/Report: Test performed by [facility] [address] [place] [address] , [address], [place] [address] Gael Garcia MD, Driver/Merchandiser CLIA: [id number] Albumin/Creatinine Ratio, Urine 4 0-30 ug/mg Microalbumin, Urine, Random 0.6 Creatinine, Urine 166.8 P-TSH reflex to FT4 Reviewed date:01/21/2024 10:13:15 AM Interpretation: Normal Performing Lab: Notes/Report: Test performed by [facility] [address] [place] [address] , [address], [place] [address] Gael Garcia MD, Driver/Merchandiser CLIA: [id number] TSH reflex to FT4 1.94 0.43-5.25 mU/L P-PSA Reviewed date:01/21/2024 10:13:15 AM Interpretation: Normal Performing Lab: Notes/Report: Test performed by [facility] [address] , [address], [place] [address] Gael Garcia MD, Driver/Merchandiser CLIA: [id number] PSA 0.36 <4.00 ng/mL Please note this is an ultrasensitive PSA assay with a lower limit of detection of 0.014 ng/mL. This test is performed by the Zora ECLIA methodology. Values obtained with different assay methods or kits cannot be directly compared. P-Phosphorus Reviewed date:01/21/2024 10:13:15 AM Interpretation:2 Performing Lab: Notes/Report: Test performed by [facility]) [address] [facility], [place] [id number] Gael Garcia MD, Driver/Merchandiser CLIA: [id number] Phosphorus 2.0 2.5-4.5 mg/dL P-Lipid Panel Reviewed date:01/21/2024 10:13:15 AM Interpretation: Normal Performing Lab: Notes/Report: Test performed by [facility]) [address] , [address], [place] [id number] Gael Garcia MD, Driver/Merchandiser CLIA: [id number] Cholesterol 159 <200 mg/dL Triglycerides 147 <150 [...] Results: 88 Units: mg/dL % Change: - P-Comprehensive Metabolic Pa lyric (CMP) Reviewed date:01/21/2024 10:13:15 AM Interpretation:gluc 109 Performing Lab: Notes/Report: Test performed by [facility] , [address], [place] [address] Gael Garcia MD, Driver/Merchandiser CLIA: [id number] Sodium 139 135-145 mmol/L Potassium 4.0 3.5-5.3 [...] 0.5 <0.2-1.2 mg/dL A/G Ratio 1.3 1.1-2.5 CBC Venipuncture (in house) Reviewed date:01/20/2024 12:41:58 [...] - 38 platlet 158 100 - 400 REASON FOR REFERRAL No Information MEDICATIONS Medication SIG (Take, Route, Fr equency, Duration) Notes Start Date End Date Status Irbesartan 150 MG 1 tablet Orally Once a day 01/19 Active Phos-NaK 280-160-250 MG 1 packet mixed w ith water or juice Orally Two times a day for 30 day(s) 02/19/2024 Active Latanoprost 0.005 % 1 gtt in each eye on ce a day (in the evening) for 30 day(s) Active Timolol Maleate 0.5 % 1 gtt in each affe cted eye once a day for 30 day(s) Active IMMUNIZATIONS Vaccine Route Administration Date Status Comme nts COVID 19 Pfizer Unknown 05/03/2020 Administered COVID 19 Pfizer Unknown 05/25/2020 Administered COVID 19 Pfizer Unknown 01/17/2021 Administered Fluzone PF Quad (6-35 months) Unknown 03/16/2020 Administered Fluzone PF Quad (6-35 months) Unknown 03/13/2021 Administered Fluzone PF Quad (6-35 months) Unknown 01/16/2022 Administered Shingrix IM Intramuscular 07/19/2022 Administered Shingrix IM Intramuscular 01/17/2023 Administered SOCIAL HISTORY Sex Assigned At : Social History Observation Description Sex Assigned At Unknown PROBLEMS Problem Type ICD Code Onset Dates Problem Status W/U Status Risk SNOMED Code Notes Problem Essential hypertension (I10) Active confirmed 17981842 Problem Hypophosphatemia (E83.39) Active confirmed 8185075 Problem Non morbid obesity (E66.9) Active confirmed 682057847 VITAL SIGNS Heart Rate 63 /min 02/19/2024 Blood pressure diastolic 80 mm Hg 02/19/2024 Height 73 in 02/19/2024 Blood pressure systolic 140 mm Hg 02/19/2024 Weight 274.8 lbs 02/19/2024 BMI 36.25 kg/m2 02/19/2024 Encounters Encounter Location Date Provider Diagnosis [facility] [address] [place], [place] [id number] 01/20/2024 Logan Morton Essential hypertensi on I10 ; Hypophosphatemia E83.39 ; Non morbid obesity E66.9 and Prostate cancer screening Z12.5 [facility] [address] [facility] [address] [place], [place] [id number] 01/21/2024 Logan Morton [facility] [address] [facility] [address] [place], [place] [id number] 01/22/2024 Logan Morton [facility] [address] [facility] [address] [place], [place] [id number] 02/19/2024 Logan Morton Essential hypertensi on I10 ; Hypophosphatemia E83.39 ; Hyperglycemia R73.9 and Non morbid obesity E66.9 [facility] [address] [facility] [address] [place], [place] [id number] 02/21/2024 Loganlilly RamirezMorton Hypophosphatemia E83 .39 ASSESSMENTS Encounter Date Diagnosis Assessment Notes Treatment Notes Treatment Clinical Notes 02/19/2024 Essential hypertensi on (ICD-10 - I10) 02/19/2024 Hypophosphatemia (ICD-10 - E83.39) 02/21/2024 Hypophosphatemia (ICD-10 - E83.39) 01/20/2024 Essential hypertensi on (ICD-10 - I10) Blood pressure journal 01/20/2024 Hypophosphatemia (ICD-10 - E83.39) 01/20/2024 Non morbid obesity (ICD-10 - E66.9) 02/19/2024 Hyperglycemia (ICD-1 0 - R73.9) 02/19/2024 Non morbid obesity (ICD-10 - E66.9) diet & exercise reviewed with patient 01/20/2024 Prostate cancer screening (ICD-10 - Z12.5) 02/19/2024 Other Lab results reviewed in office PLAN OF TREATMENT Pending Test Test Name Order Date H-BMP 02/19/2024 H-PHOS 02/19/2024 H-Glucose Tolerance Test 02/19/2024 Next Appt Details Provider Name:Logan Atkinson ry, 05/20/2024 09:15:00 AM, [address] [facility], [address], [place], [place], [id number], Insurance Providers Payer Name Payer Address Payer Phone Subscriber Number Group Number Insured Name Patient Relationship to Insured Coverage Start Date Coverage End Date REY CHAVEZ [address] [place] [address] [id number] [address]EN[address] DORADO Self - patient is the insured MEDICAL (GENERAL) HISTORY Medical History History ICD Code Glaucoma hypertension Surgical History Surgery Date(Month/Year) Colonoscopy 2019
--- OUTSIDE RECORDS SUMMARY | 2024-03-20 09:11 | XMS_ITS | Encounter Summary ---
Author Organization Healthcare Address [address] [place] [address] Care Team Providers Care Horse Racer Name Role Phone Donnie Acuna MD Primary Care Provider [phone] Encounter Details Date Type Department Care Team (Late st Contact Info) Description 12/27/2023 2:15 PM EDT Immunization [facility] [address] [place] [phone] Need for COVID-19 vaccine (Primary Dx); Need for immunization against influenza Social History Tobacco Use Types Packs/Day Years [...] Diagnoses Diagnosis Need for COVID-19 vaccine- Primary Need for immunization against influenza Need for prophylactic vaccination and inoculation against influenza documented in this encounter Additional Health Concerns Assessment Noted Time A Body Mass Index follow-up plan has been documented for the patient 11/15/2023 12:21 PM EDT documented as of this encounter Care Teams Horse Racer Relationship Specialty Start Date End Date Donnie Acuna MD [address] [place] [address] PCP - General 09/02/20 documented as of this encounter
--- OUTSIDE RECORDS SUMMARY | 2024-03-20 09:11 | XMS_ITS ---
Author Organization [facility] Address [address] [facility] [address] [place] [id number] Care Team Providers Care Stretcher Leveler Operator Helper Name Role Phone Eva Logan Unavailable [phone] ALLERGIES No Known Allergies REASON FOR VISIT 1 Month Follow Up MEDICATIONS Medication SIG (Take, Route, Fr equency, [...] once a day for 30 day(s) Active VITAL SIGNS Weight 274.8 lbs 02/19/2024 Blood pressure systolic 140 mm Hg 02/19/20 24 Blood pressure diastolic 80 mm Hg 024 Heart Rate 63 /min 02/19/2024 Height 73 in 02/19/2024 BMI 36.25 kg/m2 02/19/2024 Encounters Encounter Location Date Provider Diagnosis [facility] [address] [facility] [address] [place] [id number] 02/19/2024 Logan Velasquez Essential hypertensi on I10 ; Hypophosphatemia E83.39 ; Hyperglycemia R73.9 and Non morbid obesity E66.9 ASSESSMENTS Encounter Date Diagnosis Assessment Notes Treatment Notes Treatment Clinical Notes 02/19/2024 Essential hypertensi on (ICD-10 - I10) 02/19/2024 Hypophosphatemia (ICD-10 - E83.39) 02/19/2024 Hyperglycemia (ICD-1 0 - R73.9) 02/19/2024 Non morbid obesity (ICD-10 - E66.9) diet & exercise reviewed with patient 02/19/2024 Other Lab results reviewed in office PLAN OF TREATMENT Medication Medication Name Sig Start Date Stop Date Notes Irbesartan 150 MG 1 tablet Orally Once a day 01/20/2024 Phos-NaK 280-160-250 MG 1 packet mixed w ith water or juice Orally Two times a day for 30 day(s) 02/19/2024 Treatment Notes Assessment Notes Non morbid obesity diet & exercise revi ewed with patient Other Lab results reviewed in office Pending Test Test Name Order Date H-BMP 02/19/2024 H-PHOS 02/19/2024 H-Glucose Tolerance Test 02/19/2024 Next Appt Details Follow Up: 3 Months, Reason: Provider Name:Logan cintron, 05/20/2024 09:15:00 AM, [address] [facility], [address], [place], [place], [id number], Progress Notes * Examination Category Sub-Category Detail Notes General Examination Heart: RSR Lungs: clear to auscultatio n Extremities: no leg edema General Appearance: NAD History and Physical Notes * HPI (History of Present Illness) Category Sub-Category Detail Notes Endocrinology Light Headed Pt states he is [...]
--- OUTSIDE RECORDS SUMMARY | 2024-03-20 09:11 | XMS_ITS | Encounter Summary ---
Author Organization [facility] Address [address] [place] [id number] Care Team Providers Care Import Coordination And Production Head Name Role Phone Donnie Acuna MD Primary Care Provider + Encounter Details Date Type Department Care Team (Late st Contact Info) Description 10/26/2021 Telephone [facility] [address] [place] [address] Donnie Acuna MD [address] [place] [address] Social History Tobacco Use Types Packs/Day Years [...] as of this encounter Miscellaneous Notes * Telephone Encounter - Oneyda Souza - 10/27/2021 8:44 AM EDT CONTACTED PT. PT [facility] WITH [facility]. * Telephone Encounter - Wil Carreno RegSched Rep - 10/26/2021 10:24 AM EDT Patient called in with questions about Dr. Acuna being in network with his insurance. He would likea call back. documented in this encounter Plan of Treatment Not on file documented as of this encounter Visit Diagnoses Not on filedocumented in this encounter Care Teams Import Coordination And Production Head Relationship Specialty Start Date End Date Donnie Acuna MD [address] [facility] [address] PCP - General Family Medicine 09/06/21 documented as of this encounter
--- OUTSIDE RECORDS SUMMARY | 2024-03-20 09:11 | XMS_ITS | Encounter Summary ---
Author Organization Healthcare Address [address] [place] [address] Care Team Providers Care Detail Technician Name Role Phone Donnie Acuna MD Primary Care Provider [phone] Encounter Details Date Type Department Care Team ([facility] st Contact Info) Description 03/13/2021 Immunization External Location [address] [place] [address] Jennifer Baer, RN [facility] STUDENT [facility] Flu vaccine need (Primary Dx) Social History [...] vaccine need- Primary documented in this encounter Care Teams Detail Technician Relationship Specialty Start Date End Date Donnie Acuna MD [address] [place] [address] PCP - General 09/02/20 documented as of this encounter
[2024-03-20 09:47] LABS: Glucose,Fasting 99 mg/dl (74-100)
[2024-03-20 10:02] LABS: Anion Gap 11.1 mEq/L (5-15); Blood Urea Nitrogen 12 mg/dl (9-20); Calcium 8.9 mg/dl (8.4-10.2); Carbon Dioxide 29 mmol/L (22.0-30.0); Chloride 106 mmol/L (98-107); Estimated Glomerular Filt Rate 99 ml/min (>60); GFR (African American) 120 ML/MIN (>60); Glucose 99 mg/dl (74-100); Phosphorous 3.1 mg/dl (2.5-4.5); Potassium 4.1 mmoL/L (3.5-5.1); Sodium 142 mmol/L (136-145)
[2024-03-20 11:05] LABS: Glucose 1 Hour 137 mg/dL (74-100)
[2024-03-20 11:49] LABS: Glucose 2 Hour 110 mg/dL (74-100)
== END 2024-03-20 23:59 | disposition home or self-care (01) ==
LOC: LAB 09:09
PROVIDERS: PCP Family Medicine; Visit Provider Family Medicine
DX: E83.39 Other disorders of phosphorus metabolism (principal); R73.9 Hyperglycemia, unspecified; I10 Essential (primary) hypertension
CPT/HCPCS: 36415; 80048; 82951; 84100

== ENCOUNTER 2025-02-20 08:44 | Emergency (ER) | payer BC, SELFPAY ==
--- OUTSIDE RECORDS SUMMARY | 2024-01-20 06:00 | XMS_ITS ---
Author Organization [facility] Address [address] [place] [id number] Care Team Providers [facility] Professor Name Role Phone Logan Velasquez Unavailable [phone] Allergies No Known Allergies Results Component Value Reference Range Notes CBC Venipuncture (in house) Reviewed date:01/20/2024 12:41:58 PM Interpretation: Performing Lab: Notes/Report: wbc 6.4 3.5 - 10 lymph 25.3% 15 - 50 mid 7.0% 2 - 15 gran 67.7% 35 - 80 rbc 4.81 3.5 - 5.5 hgb 15.6 11.5 - 16.5 hct 46.2 35 - 55 mcv 96.1 75 - 100 mch 32.5 25 - 35 mchc 33.8 31 - 38 platlet 158 100 - 400 P-Comprehensive Metabolic Pa lyric (CMP) Reviewed date:01/21/2024 10:13:15 AM Interpretation:gluc 109 Performing Lab: Notes/Report: Test performed by [facility] [address] [place] [address] , [address], [place] [address] Gael Garcia MD, Take Out Waitress CLIA: [id number] Sodium 139 135-145 mmol/L Potassium 4.0 3.5-5.3 mmol/L Chloride 106 97-108 mmol/L CO2 22 22-32 mmol/L Glucose 109 65-99 mg/dL BUN 17 6-20 mg/dL Creatinine 0.84 0.70-1.30 mg/dL Calcium 8.7 8.6-10.4 mg/dL eGFR by Creatinine 100 >59 mL/min/1.73m2 Protein 7.6 6.0-8.3 g/dL Albumin 4.3 3.5-5.3 g/dL Alkaline Phosphatase 102 40-129 IU/L ALT (SGPT) 36 <5-55 IU/L AST (SGOT) 34 <5-46 IU/L Bilirubin, Total 0.5 <0.2-1.2 mg/dL A/G Ratio 1.3 1.1-2.5 P-Lipid Panel Reviewed date:01/21/2024 10:13:15 AM Interpretation: Normal Performing Lab: Notes/Report: Test performed by [facility] [address] [place] [address] , [address], [place] [address] Gael Garcia MD, Take Out Waitress CLIA: [id number] Cholesterol 159 <200 mg/dL Triglycerides 147 <150 mg/dL HDL Cholesterol 42 >39 mg/dL Cholesterol / HDL Ratio 3.79 0.00-4.99 Ratio Non-HDL Cholesterol 117 <130 mg/dL LDL Cholesterol (Calculation) 88 <130 mg/dL LDL Cholesterol Levels* Less than 100 mg/dL Optimal 100 to 129 mg/dL Near Optimal/ Above Optimal 130 to 159 mg/dL Borderline High 160 to 189 mg/dL High 190 mg/dL and above Very High * Categories as recommended by the 2004 ATPIII guidelines LDL/HDL Ratio 2.1 <3.3 Ratio LDL Cholesterol Patient History Test Date: 01/20/2024 LDL Results: 88 Units: mg/dL % Change: - P-Phosphorus Reviewed date:01/21/2024 10:13:15 AM Interpretation:2 Performing Lab: Notes/Report: [facility] , [address], [place] [address] Gael Garcia MD, Take Out Waitress CLIA: [id number] Phosphorus 2.0 2.5-4.5 mg/dL P-PSA Reviewed date:01/21/2024 10:13:15 AM Interpretation: Normal Performing Lab: Notes/Report: Test performed by [address] , [place] [address] Gael Garcia MD, Take Out Waitress CLIA: [id number] PSA 0.36 <4.00 ng/mL Please note this is an ultrasensitive PSA assay with a lower limit of detection of 0.014 ng/mL. This test is performed by the [employer] ECLIA methodology. Values obtained with different assay methods or kits cannot be directly compared. P-TSH reflex to FT4 Reviewed date:01/21/2024 10:13:15 AM Interpretation: Normal Performing Lab: Notes/Report: Test performed by [facility] , [place] [address] Gael Garcai MD, Take Out Waitress CLIA: [id number] TSH reflex to FT4 1.94 0.43-5.25 mU/L P-Microalbumin/Creatinine, R andom Urine Sample Reviewed date:01/21/2024 10:13:15 AM Interpretation: Normal Performing Lab: Notes/Report: Test performed by [address] , [address], [place] [address] Gael Garcia MD, Take Out Waitress CLIA: [id number] Albumin/Creatinine Ratio, Urine 4 0-30 ug/mg Microalbumin, Urine, Random 0.6 Creatinine, Urine 166.8 P-Uric Acid Reviewed date:01/21/2024 10:13:15 AM Interpretation: Normal Performing Lab: Notes/Report: Test performed by [facility] , [address], [place] [address] Gael Garcia MD, Take Out Waitress CLIA: [id number] Uric Acid 6.0 3.4-8.0 mg/dL REASON FOR VISIT 1 year check up Medications Medication SIG (Take, Route, Fr equency, Duration) Notes Start Date End Date Status Latanoprost 0.005 % 1 gtt in each eye on ce a day (in the evening); Duration: 30 day(s) Active Timolol Maleate 0.5 % 1 gtt in each affe cted eye once a day; Duration: 30 day(s) Active Irbesartan 150 MG 1 tablet Orally Once a day; Duration: 90 days 01/20/2024 Active Problems Problem Type SNOMED Code ICD Code Onset Dates Problem Status W/U Status Risk Notes Problem Essential hypertension (15510480) Essential hypertension (I10) Active confirmed Vital Signs Blood pressure systolic 150 mm Hg 01/20/20 24 Blood pressure diastolic 80 mm Hg 024 Heart Rate 74 /min 01/20/2024 Height 73 in 01/20/2024 Weight 277.6 lbs 01/20/2024 BMI 36.62 kg/m2 01/20/2024 Encounters Encounter Location Date Provider Diagnosis [facility] [address] [facility] [address] [place] [id number] 01/20/2024 Logan Velasquez Essential hypertensi on I10 ; Hypophosphatemia E83.39 ; Non morbid obesity E66.9 and Prostate cancer screening Z12.5 Assessments Encounter Date Diagnosis (ICD Code) Assessment Notes Treatment Notes Treatment Clinical Notes Section Notes 01/20/2024 Essential hypertension (ICD-10 - I10) Blood pressure journal 01/20/2024 Hypophosphatemia (ICD-10 - E83.39) 01/20/2024 Non morbid obesity (ICD-10 - E66.9) 01/20/2024 Prostate cancer screening (ICD-10 - Z12.5) Plan Of Treatment Medication Medication Name Sig Start Date Stop Date Notes Irbesartan 150 MG 1 tablet Orally Once a day; Duration: 90 days 01/20/2024 Treatment Notes Assessment Notes Essential hypertension Blood pressure mary ellen urnal Next Appt Details Follow Up: 4 Weeks, Reason: Provider Name:Logan Atkinson ry, 05/31/2025 09:15:00 AM, [address], [place], [place], [id number], Progress Notes * FRENCH DORADO WDOB: [birth year] (59 yo M)Acc No.[id number]:01/20/2024 Progress Notes Patient: FRENCH ROMERO Provider: Cristobal Velasquez M.D. :1965 A ge:58 Y S ex:Male Date:01/20/2024 Address:[facility], [place], [id number] Subjective: * Chief Complaints: * 1 . 1 year check up. * HPI: C ardiology: 58 year old male presents with c/o Blood Pressure Elevated P t complains of elevated bp at home. States he checked this morning and it was 144/80. Pt states has a couple hiking trips planned and wants to make sure his bp is under control . H PI: c/o Patient is here today for A nnual check-up, pt is not fasting today. * ROS: D ERMATOLOGY: no R omar. n o H melvin. G ASTROENTEROLOGY: no N ausea. n o V omiting. U ROLOGY: no D ifficulty urinating. n o B lood in urine. * Medical History: G laucoma. * Surgical History: C olonoscopy 2019. * Hospitalization/Major Diagno stic Procedure: D enies Past Hospitalization. * Family History: F ather: , diagnosed with Cancer. M other: alive 85 yrs. 1 sister(s) . . Pt's father from Lung Cancer. * Social History: C URRENT TOBACCO USE: No . C affeine: yes, frequency: daily. Alcohol: yes, Socially. * Medications: T aking Latanoprost 0.005 % Solution 1 gtt in each eye once a day (in the evening) , Taking Timolol Maleate 0.5 % Solution 1 gtt in each affected eye once a day , Discontinued Multivitamin - Tablet 1 tablet Orally Once a day , Discontinued Phosphorous 155-852-130 MG Tablet TAKE 1 TABLET BY MOUTH EVERY DAY , Discontinued Pepcid 20 MG Tablet 1 tablet at bedtime as needed Orally Once a day , Medication List reviewed and reconciled with the patient * Allergies: N .K.D.A. Objective: * Vitals: W t:277.6, Temp:98.1, BP:150/80, HR:74, Nurse:jovanna, Ht: 73, BMI:36.62. * Examination: G eneral Examination: General Appearance: N AD. H eart: R SR. L ungs:?clear to auscultation. E xtremities: no leg edema. Assessment: * Assessment: 1. E ssential hypertension - I10 (Primary) 2 . H ypophosphatemia - E83.39? 3. N on morbid obesity - E66.9 4 . P rostate cancer screening - Z12.5 Plan: * Treatment: Value Reference Range A /G Ratio 1.3 1.1-2.5 - * A lbumin 4.3 3.5-5.3 - g/dL * A lkaline Phosphatase 102 40-129 - IU/L * A LT (SGPT) 36 <5-55 - IU/L * A ST (SGOT) 34 <5-46 - IU/L * B ilirubin, Total 0.5 <0.2-1.2 - mg/dL * B UN 17 6-20 - mg/dL * C alcium 8.7 8.6-10.4 - mg/dL * C hloride 106 97-108 - mmol/L * C O2 22 22-32 - mmol/L * C reatinine 0.84 0.70-1.30 - mg/dL * G lucose 109 H 65-99 - mg/dL * P otassium 4.0 3.5-5.3 - mmol/L * S odium 139 135-145 - mmol/L * P rotein 7.6 6.0-8.3 - g/dL * e GFR by Creatinine 100 >59 - mL/min/1.73m2 * Melba Humphreys 01/21/2024 10:13 :07 AM >See phone encounter ?LAB: P-Lipid Panel (Collection Date & Time - 01/20/2024 09:05 AM)?Normal* Value Reference Range C holesterol / HDL Ratio 3.79 0.00-4.99 - Ratio * C holesterol 159 <200 - mg/dL * H DL Cholesterol 42 >39 - mg/dL * L DL Cholesterol (Calculation) 88 <130 - mg/d L * L DL/HDL Ratio 2.1 <3.3 - Ratio * N on-HDL Cholesterol 117 <130 - mg/dL * T riglycerides 147 <150 - mg/dL * Melba Humphreys 01/21/2024 10:13 :07 AM >See phone encounter ?LAB: P-TSH reflex to FT4 (Collection Date & Time - 01/20/2024 09:05 AM)? Normal* Value Reference Range T SH reflex to FT4 1.94 0.43-5.25 - mU/L * Melba Humphreys 01/21/2024 10:13 :07 AM >See phone encounter ?LAB: P-Microalbumin/Creatinine, Random Urine Sample (Collection Date & Time - 01/20/2024 09:05 AM)?Normal* Value Reference Range A lbumin/Creatinine Ratio, Urine 4 0-30 - ug /mg * C reatinine, Urine 166.8 - mg/dL * M icroalbumin, Urine, Random 0.6 - mg/dL * Melba Humphreys 01/21/2024 10:13 :07 AM >See phone encounter ?LAB: P-Uric Acid (Collection Date & Time - 01/20/2024 09:05 AM)?Normal* Value Reference Range U yue Acid 6.0 3.4-8.0 - mg/dL * Melba Humphreys 01/21/2024 10:13 :07 AM >See phone encounter ?LAB: CBC Venipuncture (in house) (Collection Date & Time - 01/20/2024)* Value Reference Range w bc 6.4 3.5 - 10 * l ymph 25.3% 15 - 50 * m id 7.0% 2 - 15 * g ran 67.7% 35 - 80 * r bc 4.81 3.5 - 5.5 * h gb 15.6 11.5 - 16.5 * h ct 46.2 35 - 55 * m cv 96.1 75 - 100 * m ch 32.5 25 - 35 * m chc 33.8 31 - 38 * p latlet 158 100 - 400 * Keya Curran 01/20/2024 10:33:3 4 AM > Notes: Blood pressure journal??2.?Hypophosphatemia?LAB: P-Phosphorus (Collection Date & Time - 01/20/2024 09:05 AM)?2* Value Reference Range P hosphorus 2.0 L 2.5-4.5 - mg/dL * Melba Humphreys 01/21/2024 10:13 :07 AM >See phone encounter 3.?Non morbid obesity?LAB: P-Comprehensive Metabolic Panel (CMP) (Collection Date & Time - 01/20/2024 09:05 AM)?gluc 109* Value Reference Range A /G Ratio 1.3 1.1-2.5 - * A lbumin 4.3 3.5-5.3 - g/dL * A lkaline Phosphatase 102 40-129 - IU/L * A LT (SGPT) 36 <5-55 - IU/L * A ST (SGOT) 34 <5-46 - IU/L * B ilirubin, Total 0.5 <0.2-1.2 - mg/dL * B UN 17 6-20 - mg/dL * C alcium 8.7 8.6-10.4 - mg/dL * C hloride 106 97-108 - mmol/L * C O2 22 22-32 - mmol/L * C reatinine 0.84 0.70-1.30 - mg/dL * G lucose 109 H 65-99 - mg/dL * P otassium 4.0 3.5-5.3 - mmol/L * S odium 139 135-145 - mmol/L * P rotein 7.6 6.0-8.3 - g/dL * e GFR by Creatinine 100 >59 - mL/min/1.73m2 * Melba Humphreys 01/21/2024 10:13 :07 AM >See phone encounter ?LAB: P-TSH reflex to FT4 (Collection Date & Time - 01/20/2024 09:05 AM)? Normal* Value Reference Range T SH reflex to FT4 1.94 0.43-5.25 - mU/L * Melba Humphreys 01/21/2024 10:13 :07 AM >See phone encounter 4.?Prostate cancer screening?LAB: P-PSA (Collection Date & Time - 01/20/2024 09:05 AM)?Normal* Value Reference Range P SA 0.36 <4.00 - ng/mL * Melba Humphreys 01/21/2024 10:13 :07 AM >See phone encounter * Procedure Codes: 8 5025 CBC WITH AUTO DIFF * Follow Up: 4 Weeks * Images: Billing Information: * Visit Code: 28369 Office Visit, Est Pt., Level 4. * Procedure Codes: 45632 CBC WITH AUTO DIFF. * Electronic signature of Cadence Velasquez MD on 02/20/2025 at 08:55 AM EDT Sign off status: Pending * Provider: Cristobal Velasquez M.D. Date: 0 01/20/2024 Generated for Urvashi flaherty/Paulina/Aryaransmitting on: 04/22/2024 08:55 AM EDT History and Physical Notes * HPI (History of Present Illness) Category Sub-Category Detail Notes Category Not es Cardiology Blood Pressure Elevated Pt compl ains of elevated bp at home. States he checked this morning and it was 144/80. Pt states has a couple hiking trips planned and wants to make sure his bp is under control HPI Patient is here today for Annual check-up, pt is not fasting today Examination Category Sub-Category Detail Notes Category Not es General Examination Heart: RSR Lungs: clear to auscultatio n Extremities: no leg edema General Appearance: NAD
--- OUTSIDE RECORDS SUMMARY | 2024-02-19 05:30 | XMS_ITS ---
Author Organization [facility] Address [address] [place] [id number] Care Team Providers Care Director [facility] Name Role Phone Logan Velasquez Unavailable [phone] Allergies No Known Allergies Results Component Value Reference Range Notes H-BMP Reviewed date:03/23/2024 09:04:12 AM Interpretation: Performing Lab: Notes/Report: H-PHOS Reviewed date:03/23/2024 09:04:23 AM Interpretation: Performing Lab: Notes/Report: H-Glucose Tolerance Test Reviewed date:03/23/2024 09:04:34 AM Interpretation: Performing Lab: Notes/Report: REASON FOR VISIT 1 Month Follow Up Medications Medication SIG (Take, Route, Fr equency, Duration) Notes Start Date End Date Status Irbesartan 150 MG 1 tablet Orally Once a day 01/19 Active Phos-NaK 280-160-250 MG 1 packet mixed w ith water or juice Orally Two times a day; Duration: 30 day(s) 02/19/2024 Active Latanoprost 0.005 % 1 gtt in each eye on ce a day (in the evening); Duration: 30 day(s) Active Timolol Maleate 0.5 % 1 gtt in each affe cted eye once a day; Duration: 30 day(s) Active Vital Signs Blood pressure systolic 140 mm Hg 02/19/20 24 Blood pressure diastolic 80 mm Hg 024 Heart Rate 63 /min 02/19/2024 Height 73 in 02/19/2024 Weight 274.8 lbs 02/19/2024 BMI 36.25 kg/m2 02/19/2024 Encounters Encounter Location Date Provider Diagnosis [facility] [address] [facility] 36 [facility] [address] [place] [id number] 02/19/2024 Logan Velasquez Essential hypertensi on I10 ; Hypophosphatemia E83.39 ; Hyperglycemia R73.9 and Non morbid obesity E66.9 Assessments Encounter Date Diagnosis (ICD Code) Assessment Notes Treatment Notes Treatment Clinical Notes Section Notes 02/19/2024 Essential hypertension (ICD-10 - I10) 02/19/2024 Hypophosphatemia (ICD-10 - E83.39) 02/19/2024 Hyperglycemia (ICD-10 - R73.9) 02/19/2024 Non morbid obesity (ICD-10 - E66.9) diet & exercise reviewed with patient 02/19/2024 Other Lab results reviewed in office Plan Of Treatment Medication Medication Name Sig Start Date Stop Date Notes Irbesartan 150 MG 1 tablet Orally Once a day 01/20/2024 Phos-NaK 280-160-250 MG 1 packet mixed w ith water or juice Orally Two times a day; Duration: 30 day(s) 02/19/2024 Treatment Notes Assessment Notes Non morbid obesity diet & exercise revi ewed with patient Other Lab results reviewed in office Next Appt Details Follow Up: 3 Months, Reason: Provider Name:Logan Atkinson , 05/31/2025 09:15:00 AM, [address] [facility] 36 [facility], [address], [place], [phone], Progress Notes * FRENCH DORADO WDOB: [birth year] (59 yo M)Acc No.[id number]:02/19/2024 Progress Notes Patient: FRENCH ROMERO Provider: Cristobal Velasquez M.D. :1965 A ge:58 Y S ex:Male Date:02/19/2024 Address:[address] [place] [address], [place], [facility] [id number] Subjective: * Chief Complaints: * 1 . 1 Month Follow Up. * HPI: C ardiology: 58 year old male presents with c/o Blood Pressure Elevated P t here for 1 mo f/u on hypertension, pt was started on Irbesartan 150mg on 01/19. E ndocrinology: Light Headed P t states he is having episodes of light-headedness and sweating a nd it has happened a few times in the last week. Pt states that every time it has happened he eats and the feeling goes away. Pt states he is concerned his blood sugar may be dropping. * ROS: D ERMATOLOGY: no R omar. n o H melvin. G ASTROENTEROLOGY: no N ausea. n o V omiting. U ROLOGY: no D ifficulty urinating. n o B lood in urine. * Medical History: G laucoma, Hypertension. * Surgical History: C olonoscopy 2019. * [...] each affected eye once a day , Taking Irbesartan 150 MG Tablet 1 tablet Orally Once a day , Medication List reviewed and reconciled with the patient * Allergies: N .K.D.A. Objective: * Vitals: W t:274.8, Temp:98.0, BP:140/80, HR:63, Nurse:jovanna, Ht: 73, BMI:36.25. * Examination: G eneral Examination: General Appearance: N AD. H eart: R SR. L ungs:?clear to auscultation. E xtremities: no leg edema. Assessment: * Assessment: 1. E ssential hypertension - I10 (Primary) 2 . H ypophosphatemia - E83.39? 3. H yperglycemia - R73.9 4 . N on morbid obesity - E66.9? Plan: * Treatment: 2.?Hypophosphatemia? Start Phos-NaK Packet, 280-160-250 MG, 1 packet mixed with water or juice, Orally, Two times a day,30 day(s), 60, Refills 1.?LAB: H-PHOS (Collection Date & Time - 03/23/2024)* see duplicate order 3.?Hyperglycemia?LAB: H-Glucose Tolerance Test (Collection Date & Time - 03/23/2024)* see duplicate order 4.?Non morbid obesity? Notes: diet & exercise reviewed with patient??5.?Others? Notes: Lab results reviewed in office?? * Follow Up: 3 Months * Images: Billing Information: * Visit Code: 86704 Office Visit, Est Pt., Level 4. * Procedure Codes: * Electronic signature of Cadence Velasquez MD on 02/20/2025 at 08:54 AM EDT Sign off status: Pending * Provider: Cristobal Velasquez M.D. Date: Generated for Urvashi flaherty/Paulina/eTangelsmitting on: 04/22/2024 08:54 AM EDT History and Physical Notes * HPI (History of Present Illness) Category Sub-Category Detail Notes Category Not es Endocrinology Light Headed Pt states he is having episodes of light-headedness and sweating and it has happened a few times in the last week. Pt states that every time it has happened he eats and the feeling goes away. Pt states he is concerned his blood sugar may be dropping Cardiology Blood Pressure Elevated Pt here for 1 mo f/u on hypertension, pt was started on Irbesartan 150mg on 01/19 Examination Category Sub-Category Detail Notes Category Not es General Examination Heart: RSR Lungs: clear to auscultatio n Extremities: no leg edema General Appearance: NAD
--- OUTSIDE RECORDS SUMMARY | 2024-05-28 05:30 | XMS_ITS ---
[facility] Address [address] [place] [id number] Care Team Providers Care Graduate Student Instructor Name Role Phone Logan Velasquez Unavailable [phone] Allergies No Known Allergies Results Component Value Reference Range Notes P-Basic Metabolic Panel (BMP ) Reviewed date:05/29/2024 12:55:52 PM Interpretation:CO2 21, Glu 107, Calc 8.5 Performing Lab: Notes/Report: Test performed by [facility] [address] [place] [address] , [address], [place] [address] Gael Garcia MD, Spanish Moss Picker CLIA: [id number] Sodium 138 135-145 mmol/L Potassium 4.4 3.5-5.3 mmol/L Chloride 106 97-108 mmol/L CO2 21 22-32 mmol/L Glucose 107 65-99 mg/dL BUN 10 6-20 mg/dL Creatinine 0.78 0.70-1.30 mg/dL Calcium 8.5 8.6-10.4 mg/dL eGFR by Creatinine 102 >59 mL/min/1.73m2 P-Phosphorus Reviewed date:05/29/2024 12:55:52 PM Interpretation:2.3 Performing Lab: Notes/Report: Test performed by [facility] [address] [place], [place] [address] [place] , [address], [place] [address] Gael Garcia MD, Spanish Moss Picker CLIA: [id number] Phosphorus 2.3 2.5-4.5 mg/dL REASON FOR VISIT 3 months Medications Medication SIG (Take, Route, Fr equency, Duration) Notes Start Date End Date Status Phos-NaK 280-160-250 MG 1 packet mixed w ith water or juice Orally Two times a day 02/19/2024 Act josefina Irbesartan 150 MG 1 tablet Orally Once a day 01/19 Active Latanoprost 0.005 % 1 gtt in each eye on ce a day (in the evening); Duration: 30 day(s) Active Timolol Maleate 0.5 % 1 gtt in each affe cted eye once a day; Duration: 30 day(s) Active Vital Signs Blood pressure systolic 130 mm Hg 05/28/19 25 Blood pressure diastolic 80 mm Hg 025 Heart Rate 66 /min 05/28/2024 Height 73 in 05/28/2024 Weight 270 lbs 05/28/2024 BMI 35.62 kg/m2 05/28/2024 Encounters Encounter Location Date Provider Diagnosis [facility] [address] [facility] [address] [place] [id number] 05/28/2024 Logan Velasquez Essential hypertensi on I10 and Hypophosphatemia E83.39 Assessments Encounter Date Diagnosis (ICD Code) Assessment Notes Treatment Notes Treatment Clinical Notes Section Notes 05/28/2024 Essential hypertension (ICD-10 - I10) 05/28/2024 Hypophosphatemia (ICD-10 - E83.39) Plan Of Treatment Medication Medication Name Sig Start Date Stop Date Notes Phos-NaK 280-160-250 MG 1 packet mixed w ith water or juice Orally Two times a day 02/19/2024 Irbesartan 150 MG 1 tablet Orally Once a day 01/20/2024 Next Appt Details Follow Up: 6 Months, Reason: Provider Name:Logan Atkinson ry, 05/31/2025 09:15:00 AM, [address], [address], [place], [id number], Progress Notes * FRENCH DORADO WDOB: [birth year] (59 yo M)Acc No.[id number]:05/28/2024 Progress Notes Patient: FRENCH ROMERO Provider: Cristobal Velasquez M.D. :1965 A ge:58 Y S ex:Male Date:05/28/2024 Address:[address] [place] [address], [place], [id number] Subjective: * Chief Complaints: * 1 . 3 months. * HPI: C ardiology: 58 year old male presents with c/o Blood Pressure Elevated P t here for 3 mo f/u on hypertension, pt states he is doing well and does not have any concerns today. * ROS: D ERMATOLOGY: no R omar. n o H melvin. G ASTROENTEROLOGY: no N ausea. n o V omiting. U ROLOGY: no D ifficulty urinating. n o B lood in urine. * Medical History: G laucoma, Hypertension, Hypophosphatemia. * Surgical History: C olonoscopy 2019. * Hospitalization/Major Diagno stic Procedure: D enies Past Hospitalization. * Family History: F ather: , diagnosed with Cancer. M other: alive 86 yrs. 1 sister(s) . . Pt's father [...] 1 tablet Orally Once a day , Taking Phos-NaK 280-160-250 MG Packet 1 packet mixed with water or juice Orally Two times a day , Medication List reviewed and reconciled with the patient * Allergies: N .K.D.A. Objective: * Vitals: W t:270, Temp:98.0, BP:130/80, HR:66, Nurse:jovanna, Ht: 73, BMI:35.62. * Examination: C ardiology: General Appearance: p leasant, NAD. H eart sounds: R RR, normal S1, S2. L ungs: c lear, no rales or wheezes. E xtremities: n o leg edema. Assessment: * Assessment: 1. E ssential hypertension - I10 (Primary) 2 . H ypophosphatemia - E83.39? Plan: * Treatment: Value Reference Range B UN 10 6-20 - mg/dL * C alcium 8.5 L 8.6-10.4 - mg/dL * C hloride 106 97-108 - mmol/L * C O2 21 L 22-32 - mmol/L * C reatinine 0.78 0.70-1.30 - mg/dL * G lucose 107 H 65-99 - mg/dL * P otassium 4.4 3.5-5.3 - mmol/L * S odium 138 135-145 - mmol/L * e GFR by Creatinine 102 >59 - mL/min/1.73m2 * Annette Baker 05/29/2024 12:55 :39 PM > See phone encounter 2.?Hypophosphatemia? Continue Phos-NaK Packet, 280-160-250 MG, 1 packet mixed with water or juice, Orally, Two times a day.?LAB: P-Phosphorus (Collection Date & Time - 05/28/2024 09:20 AM)?2.3* Value Reference Range P hosphorus 2.3 L 2.5-4.5 - mg/dL * SamuelAnnette 05/29/2024 12:55 :39 PM > See phone encounter * Procedure Codes: 3 075F SYST BP GE 130 - 139MM HG, 3079F DIAST BP 80-89 MM HG * Follow Up: 6 Months * Images: Billing Information: * Visit Code: 31336 Office Visit, Est Pt., Level 3. * Procedure Codes: 3075F SYST BP GE 130 - 139MM HG. 3079F DIAST BP 80-89 MM HG. * Electronic signature of Cadence Velasquez MD on 02/20/2025 at 08:54 AM EDT Sign off status: Pending * Provider: Cristobal Velasquez M.D. Date: 0 05/28/2024 Generated for Urvashi flaherty/Paulina/Luma on: 04/22/2024 08:54 AM EDT History and Physical Notes * HPI (History of Present Illness) Category Sub-Category Detail Notes Category Not es Cardiology Blood Pressure Elevated Pt here for 3 mo f/u on hypertension, pt states he is doing well and does not have any concerns today Examination Category Sub-Category Detail Notes Category Not es Cardiology Lungs: clear, no rales or wheezes Heart sounds: RRR, normal S1, S2 Extremities: no leg edema General Appearance: pleasant, NAD
--- OUTSIDE RECORDS SUMMARY | 2024-09-18 07:15 | XMS_ITS ---
Author Organization [facility] Address [address] [facility] [address] [place] [id number] Care Team Providers Care Brake Repair Supervisor Name Role Phone Logan Velasquez Unavailable [phone] Allergies No Known Allergies REASON FOR VISIT Knee Pain Medications Medication SIG (Take, Route, Fr equency, Duration) Notes Start Date End Date Status Phos-NaK 280-160-250 MG 1 packet mixed w ith water or juice Orally Two times a day 02/19/2024 Act josefina Timolol Maleate 0.5 % 1 gtt in each affe cted eye once a day; Duration: 30 day(s) Active Irbesartan 150 MG 1 tablet Orally Once a day; Duration: 90 days 01/20/2024 Active Latanoprost 0.005 % 1 gtt in each eye on ce a day (in the evening); Duration: 30 day(s) Active Meloxicam 7.5 MG 1 tablet Orally Once a day; Duration: 30 days 09/18/2024 Active Vital Signs Blood pressure systolic 122 mm Hg 09/19/19 25 Blood pressure diastolic 82 mm Hg 025 Heart Rate 68 /min 09/18/2024 Height 73 in 09/18/2024 Weight 276.6 lbs 09/18/2024 BMI 36.49 kg/m2 09/18/2024 Encounters Encounter Location Date Provider Diagnosis [facility] [address] [place] [id number] 09/18/2024 Logan Velasquez Pain, joint, knee, left M25.562 Assessments Encounter Date Diagnosis (ICD Code) Assessment Notes Treatment Notes Treatment Clinical Notes Section Notes 09/18/2024 Pain, joint, knee, left (ICD-10 - M25.562) Home exercise program provided to patient Plan Of Treatment Medication Medication Name Sig Start Date Stop Date Notes Meloxicam 7.5 MG 1 tablet Orally Once a day; Duration: 30 days 09/18/2024 Treatment Notes Assessment Notes Pain, joint, knee, left Home exercise pr ogram provided to patient Next Appt Details Follow Up: via phone to repo rt progress, Reason: Provider Name:Logan Atkinson ry, 05/31/2025 09:15:00 AM, [address], [address], [place], [place], [id number], Progress Notes * FRENCH DORADO WDOB: [birth year] (59 yo M)Acc No.[id number]:09/18/2024 Progress Notes Patient: FRENCH ROMERO Provider: Cristobal Velasquez M.D. :1965 A ge:58 Y S ex:Male Date:09/18/2024 Address:[address] [place] [address], [place] [id number] Subjective: * Chief Complaints: * 1 . Knee Pain. * HPI: K nee/Melo: 58 year old male presents with c/o knee pain P t complains of off and on lt knee pain for a while . Pt states pain has become persistent since around the beginning of June. Pt states pain is across the front of his lt knee. Pt denies swelling. * ROS: D ERMATOLOGY: no R omar. [...] affected eye once a day , Taking Phos-NaK 280-160-250 MG Packet 1 packet mixed with water or juice Orally Two times a day , Taking Irbesartan 150 MG Tablet 1 tablet Orally Once a day , Medication List reviewed and reconciled with the patient * Allergies: N .K.D.A. Objective: * Vitals: W t: 276.6, Temp: 97.9, BP: 122/82, HR: 68, Nurse: jovanna, Ht: 73, BMI:36.49. * Examination: G eneral Examination: General Appearance: N AD. K nee / Melo: Knee: l eft. I nspection: n o swelling or redness.?Palpation: t enderness on pes anserine bursa. R abril of motion: n ormal flexion and extension. Assessment: * Assessment: 1. P ain, joint, knee, left - M25.562 (Primary) Plan: * Treatment: * Follow Up: v ia phone to report progress * Images: Billing Information: * Visit Code: 30447 Office Visit, Est Pt., Level 3. * Procedure Codes: * Electronic signature of Cdaence Velasquez MD on 02/20/2025 at 08:54 AM EDT Sign off status: Pending * Provider: Cristobal Velasquez M.D. Date: 0 09/18/2024 Generated for Urvashi flaherty/Paulina/Luma on: 04/22/2024 08:54 AM EDT History and Physical Notes * HPI (History of Present Illness) Category Sub-Category Detail Notes Category Not es Knee/Melo knee pain Pt complains of off and on lt knee pain for a while . Pt states pain has become persistent since around the beginning of June. Pt states pain is across the front of his lt knee. Pt denies swelling Examination Category Sub-Category Detail Notes Category Not es General Examination General Appearance: NAD Knee / Melo Palpation: tenderness on pe s anserine bursa Knee: left Inspection: no swelling or redne ss Range of motion: normal flexion and e xtension
--- OUTSIDE RECORDS SUMMARY | 2024-11-26 05:15 | XMS_ITS ---
Author Organization [facility] Address [address] [facility] 36 [facility] [address] [place] [id number] Care Team Providers Care Shaker Plate Operator Name Role Phone Logan Velasquez Unavailable [phone] Allergies No Known Allergies Results Component Value Reference Range Notes P-Phosphorus Reviewed date:11/27/2024 01:13:33 PM Interpretation:Normal Performing Lab: Notes/Report: Test performed by [facility] [address] [place] [address] , [address], [place] [address] Gael Garcia MD, Customer Support Engineer CLIA: [id number] Phosphorus 2.8 2.5-4.5 mg/dL REASON FOR VISIT 6 month ckup Medications Medication SIG (Take, Route, Frequency, Duration) Notes Start Date End Date Status Latanoprost 0.005 % 1 gtt in each eye on ce a day (in the evening); Duration: 30 day(s) Active Timolol Maleate 0.5 % 1 gtt in each affe cted eye once a day; Duration: 30 day(s) Active Phos-NaK 280-160-250 MG 1 packet mixed w ith water or juice Orally Two times a day 02/19/2024 Not-Taking Irbesartan 150 MG 1 tablet Orally Once a day 01/20/2024 Active Vital Signs Blood pressure systolic 132 mm Hg 11/27/19 25 Blood pressure diastolic 80 mm Hg 025 Heart Rate 64 /min 11/26/2024 Height 73 in 11/26/2024 Weight 281.2 lbs 11/26/2024 BMI 37.1 kg/m2 11/26/2024 Encounters Encounter Location Date Provider Diagnosis [facility] [address] [facility] 36 [facility] [address] [place] [id number] 11/26/2024 Logan Velasquez Essential hypertensi on I10 and Hypophosphatemia E83.39 Assessments Encounter Date Diagnosis (ICD Code) Assessment Notes Treatment Notes Treatment Clinical Notes Section Notes 11/26/2024 Essential hypertension (ICD-10 - I10) 11/26/2024 Hypophosphatemia (ICD-10 - E83.39) Plan Of Treatment Medication Medication Name Sig Start Date Stop Date Notes Irbesartan 150 MG 1 tablet Orally Once a day 01/20/2024 Next Appt Details Follow Up: 6 Months fasting, Reason: Provider Name:Logan Atkinson ry, 05/31/2025 09:15:00 AM, [address] [facility] 36 [facility], [address], [place], [id number], Progress Notes * FRENCH DORADO WDOB: [birth year] (59 yo M)Acc No.[id number]:11/26/2024 Progress Notes Patient: FRENCH ROMERO Provider: Cristobal Velasquez M.D. :1965 A ge:58 Y S ex:Male Date:11/26/2024 Address:[address] [place] [address], [facility] Subjective: * Chief Complaints: * 1 . 6 month ckup. * HPI: C ardiology: 58 year old male presents with c/o Blood Pressure Elevated P t here for 6 mo check up on hypertension. Pt states he is doing well and does [...] 1 tablet Orally Once a day , Not-Taking Phos-NaK 280-160-250 MG Packet 1 packet mixed with water or juice Orally Two times a day , Discontinued Meloxicam 7.5 MG Tablet 1 tablet Orally Once a day , Medication List reviewed and reconciled with the patient * Allergies: N .K.D.A. Objective: * Vitals: W t: 281.2, Temp: 98.1, BP: 132/80, HR: 64, Nurse: jovanna, Ht: 73, BMI:37.1. * Examination: C ardiology: General Appearance: p leasant, NAD. H eart sounds: R RR, normal S1, S2. L ungs: c lear, no rales or wheezes. E xtremities: n o leg edema. Assessment: * Assessment: 1. E ssential hypertension - I10 (Primary) 2 . H ypophosphatemia - E83.39? Plan: * Treatment: 2. H ypophosphatemia L AB: P-Phosphorus (Collection Date & Time - 11/26/2024 09:00 AM) N ormal Value Reference Range P hosphorus 2.8 2.5-4.5 - mg/dL * Keya Curran 11/27/2024 01:10:0 3 PM EDT > LM for pt to return Luzmaria Beal 11/27/2024 01:13:21 PM EDT > pt informed * Procedure Codes: 1 036F TOBACCO NON-USER, 3075F SYST BP GE 130 - 139MM HG, 3079F DIAST BP 80-89 MM HG * Follow Up: 6 Months fasting * Images: Billing Information: * Visit Code: 11464 Office Visit, Est Pt., Level 3. * Procedure Codes: 1036F TOBACCO NON-USER. 3075F SYST BP GE 130 - 139MM HG. 3079F DIAST BP 80-89 MM HG. * Electronic signature of Cadence Velasquez MD on 02/20/2025 at 08:55 AM EDT Sign off status: Pending * Provider: Cristobal Velasquez M.D. Date: 0 11/26/2024 Generated for Urvashi flaherty/Paulina/Luma on: 1 04/22/2024 08:55 AM EDT History and Physical Notes * HPI (History of Present Illness) Category Sub-Category Detail Notes Category Not es Cardiology Blood Pressure Elevated Pt here for 6 mo check up on hypertension. Pt states he is doing well and does not have any concerns today Examination Category Sub-Category Detail Notes Category Not es Cardiology Lungs: clear, no rales or wheezes Heart sounds: RRR, normal S1, S2 Extremities: no leg edema General Appearance: pleasant, NAD
--- OUTSIDE RECORDS SUMMARY | 2025-01-15 10:15 | XMS_ITS | Encounter Summary ---
Author Organization [facility] Address [address] [place] [address] Care Team Providers Care Extension Course Counselor Name Role Phone Donnie Acuna MD Primary Care Provider [phone] Encounter Details Date Type Department Care Team (Late st Contact Info) Description 01/15/2025 10:15 AM EDT Immunization [facility] [address] [place] [phone] Need for COVID-19 vaccine (Primary Dx); Need [...] documented as of this encounter Care Teams Extension Course Counselor Relationship Specialty Start Date End Date Donnie Acuna MD [address] [place] [address] PCP - General 09/02/20 documented as of this encounter
[2025-02-20 08:51] VITALS: BP 150/79; PULSE 71; RESP 18; TEMP 36.7; O2SAT 95; BMI 36.9
--- OUTSIDE RECORDS SUMMARY | 2025-02-20 08:54 | XMS_ITS | Patient Health Record ---
Author Organization [facility] Address [facility] [address] [place] [phone] Care Team Providers Care Mold Cleaner Name Role Phone Logan Velasquez Unavailable [phone] Allergies No Known Allergies Results Component Value Reference Range Notes P-Basic Metabolic Panel (BMP ) Reviewed date:05/29/2024 12:55:52 PM Interpretation:CO2 21, Glu 107, Calc 8.5 Performing Lab: Notes/Report: CLIA: [id number] Gael Garcia MD, Mining Plant Operator [address] [place] [address] , [address], [place] [address] Test performed by [facility] Sodium 138 135-145 mmol/L Potassium 4.4 3.5-5.3 mmol/L Chloride 106 97-108 mmol/L CO2 21 22-32 mmol/L Glucose 107 65-99 mg/dL BUN 10 6-20 mg/dL Creatinine 0.78 0.70-1.30 mg/dL Calcium 8.5 8.6-10.4 mg/dL eGFR by Creatinine 102 >59 mL/min/1.73m2 P-Phosphorus Reviewed date:05/29/2024 12:55:52 PM Interpretation:2.3 Performing Lab: Notes/Report: Test performed by [facility] [address] [place] [address] , [address], [place] [address] Gael Garcia MD, Mining Plant Operator CLIA: [id number] Phosphorus 2.3 2.5-4.5 mg/dL H-BMP Reviewed date:03/23/2024 09:05:22 AM Interpretation: Normal Performing Lab: Notes/Report: NA 142 136-145 mmol/L K 4.1 3.5-5.1 mmoL/L CL 106 98-107 mmol/L CO2 29 22.0-30.0 mmol/L GAP 11.1 5-15 mEq/L BUN 12 9-20 mg/dl CREATT 0.80 0.66-1.25 mg/dl GFRAA 120 >60 ML/MIN EGFR 99 >60 ml/min GLU 99 74-100 mg/dl CA 8.9 8.4-10.2 mg/dl H-PHOS Reviewed date:03/23/2024 09:05:22 AM Interpretation: Normal Performing Lab: Notes/Report: PHOS 3.1 2.5-4.5 mg/dl P-Phosphorus Reviewed date:11/27/2024 01:13:33 PM Interpretation:Normal Performing Lab: Notes/Report: CLIA: [id number] Gael Garcia MD, Mining Plant Operator [address] [place] [address] , [place] [address] Test performed by [facility] [employer] Phosphorus 2.8 2.5-4.5 mg/dL GTT2 Reviewed date:03/23/2024 09:05:22 AM Interpretation:gluc 60-137, gluc 2hr- 110 Performing Lab: Notes/Report: GLUF 99 74-100 mg/dl GLU60 137 74-100 mg/dL GLU2H 110 74-100 mg/dL FUGLU Negative 1UGLU Negative 2UGLU Negative Reason For Referral No Information Medications Medication SIG (Take, Route, Frequency, Duration) Notes Start Date End Date Status Irbesartan 150 MG 1 tablet Orally Once a day; Duration: 30 days 01/20/2024 Active Latanoprost 0.005 % 1 gtt in each eye on ce a day (in the evening); Duration: 30 day(s) Active Timolol Maleate 0.5 % 1 gtt in each affe cted eye once a day; Duration: 30 day(s) Active Phos-NaK 280-160-250 MG 1 packet mixed w ith water or juice Orally Two times a day 02/19/2024 Not-Taking Immunizations Vaccine Route Administration Date Status Comme nts Shingrix IM Intramuscular 07/19/2022 Administered Shingrix IM Intramuscular 01/17/2023 Administered Fluzone PF Quad (6-35 months) Unknown 03/16/2020 Administered Fluzone PF Quad (6-35 months) Unknown 03/13/2021 Administered Fluzone PF Quad (6-35 months) Unknown 01/16/2022 Administered COVID 19 Pfizer Unknown 05/03/2020 Administered COVID 19 Pfizer Unknown 05/25/2020 Administered COVID 19 Pfizer Unknown 01/17/2021 Administered Problems Problem Type SNOMED Code ICD Code Onset Dates Problem Status W/U Status Risk Notes Problem Essential hypertension (80678014) Essential hypertension (I10) Active confirmed Problem Hypophosphatemia (3254113) Hypophosphatemia (E83.39) Active confirmed Problem Obesity (019216924) Non morbid o besity (E66.9) Active confirmed Vital Signs Heart Rate 64 /min 11/26/2024 Blood pressure diastolic 80 mm Hg 11/26/2024 Height 73 in 11/26/2024 Blood pressure systolic 132 mm Hg 11/26/2024 Weight 281.2 lbs 11/26/2024 BMI 37.1 kg/m2 11/26/2024 Encounters Encounter Location Date Provider Diagnosis [facility] [address] [facility] [address] [place], [place] [id number] 05/28/2024 Logan [place] Essential hypertensi on I10 and Hypophosphatemia E83.39 [facility] [address] [facility] [address] [place], [place] [id number] 09/18/2024 Logan [place] Pain, joint, knee, l eft M25.562 [facility] [address] [place], [place] [id number] 11/26/2024 Logan [place] Essential hypertensi on I10 and Hypophosphatemia E83.39 [facility] [address] [place], [place] [id number] 02/21/2024 Logan [place] Hypophosphatemia E83 .39 [facility] [address] [place], [place] [id number] 03/23/2024 Logan [place] [facility] [address] [place], [place] [id number] 05/29/2024 Logan [place] [facility] [address] [facility] [address] [place] [id number] 08/24/2024 [place]illy [place] Essential hypertensi on I10 [facility] [address] [facility] [address] [place] [id number] 09/30/2024 [place]illy [place] Screening for colon cancer Z12.11 [facility] [address] [facility] [address] [place] [id number] 01/18/2025 [place]lilly [place]ie[place] Essential hypertensi on I10 Assessments Encounter Date Diagnosis (ICD Code) Assessment Notes Treatment Notes Treatment Clinical Notes Section Notes 09/18/2024 Pain, joint, knee, left (ICD-10 - M25.562) Home exercise program provided to patient 09/30/2024 Screening for colon cancer (ICD-10 - Z12.11) 02/21/2024 Hypophosphatemia (ICD-10 - E83.39) 08/24/2024 Essential hypertension (ICD-10 - I10) 05/28/2024 Essential hypertension (ICD-10 - I10) 05/28/2024 Hypophosphatemia (ICD-10 - E83.39) 01/18/2025 Essential hypertension (ICD-10 - I10) 11/26/2024 Essential hypertension (ICD-10 - I10) 11/26/2024 Hypophosphatemia (ICD-10 - E83.39) Plan Of Treatment Pending Test Test Name Order Date colonoscopy 09/30/2024 Next Appt Details Provider Name:Logan Atkinson ry, 05/31/2025 09:15:00 AM, [address] [facility], [address], [place], [id number], Insurance Providers Payer Name Payer Address Payer Phone Subscriber Number Group Number Insured Name Patient Relationship to Insured Coverage Start Date Coverage End Date [employer] [address] [place] [address] [id number] FRENCH DELCID Self - patient is the insured Medical (General) History Medical History History ICD Code Glaucoma Hypertension Hypophosphatemia Surgical History Surgery Date(Month/Year) Colonoscopy 2019
--- OUTSIDE RECORDS SUMMARY | 2025-02-20 08:55 | XMS_ITS | Clinical Summary ---
Author Organization [facility] Address [address] [place] [address] Care Team Providers Care Lease Picker Name Role Phone Donnie Acuna MD Primary Care Provider + Allergies No known active allergies Medications TIMOLOL MALEATE OP Apply to eye(s) as directed by provider. Active Active Problems Problem Noted Date Diagnosed Date Class 2 obesity due to exces s calories without serious comorbidity in adult 09/06/2021 Assessment & Plan (09/06/2021 10:14 AM EDT): Patient's (Body mass index is 37.6 kg/m .) indicates that they are obese (BMI >30) [...] nutritional counseling plan covered through his employer ([employer]). I encouraged him to investigate this to take advantage of what ever options are available. Patient will remain active with hiking. Fortunately at present patient's weight is not presenting any significant health problems. Immunizations Immunization Administration Dates Next Due Fluzone (or Fluarix [...] 72 09/06/2021 9:11 AM EDT Temperature 36.5 C (97.7 F) 09/06/2021 9:11 AM EDT Respiratory Rate 20 09/06/2021 9:11 AM EDT Oxygen Saturation - - Inhaled Oxygen Concentration - - Weight 129 kg (285 lb) 09/06/2021 9:11 AM EDT Height 185.4 cm (6' 1 ) 09/06/2021 9:11 AM EDT Body Mass Index 37.6 09/06/2021 9:11 AM EDT Plan of Treatment Health Maintenance Due Date Last Done Comments TDAP/TD VACCINES (1 - Tdap) 12/17/1983 COLOGUARD 2009 COLON CANCER SCREENING 5 YEA R SIGMOID[address] COLONOGRAPHY 2009 FECAL OCCULT BLOOD TEST 2009 FIT Testing (1 year) 2009 Pneumococcal Vaccine 50+ (1 of 1 - PCV) 2014 ZOSTER VACCINE (1 of 2) 2014 ANNUAL PHYSICAL 09/06/2021 HEPATITIS C SCREENING 09/06/2021 INFLUENZA VACCINE 11/20/2024 03/13/2021, , 01/22/2019, Additional history exists COLONOSCOPY 09/06/2027 09/05/2017 COLORECTAL CANCER SCREENING 09/06/2027 Insurance [facility] PPO Care Teams Lease Picker Relationship Specialty Start Date End Date [place] [address] PCP - General Family Medicine 09/06/21
--- OUTSIDE RECORDS SUMMARY | 2025-02-20 08:55 | XMS_ITS | Clinical Summary ---
Author Organization Healthcare Address [address] [place] [address] Care Team Providers Care Healthcare Consulting Manager Name Role Phone Donnie Acuna MD Primary Care Provider Encounters * This document contains information received from the source organization and may not represent a complete record from that organization. Date Type Department Care Team Description 01/15/2025 10:15 AM EDT Immunization [facility] [address] [place] [phone] Need for COVID-19 vaccine (Primary Dx); Need for immunization against influenza from Last 3 Months Immunizations Immunization Administration Dates Next Due DTaP, Unspecified 11/21/1968,12/12/1966 Influenza, Unspecified 01/22/2019,2017,02/01/2017,2015,02/01/2015 Influenza, injectable, MDCK, preservative free, quadrivalent 01/07/2023 Influenza, injectable, quadr ivalent, preservative free 01/16/2022,03/13/2021,03/16/2020 Influenza, seasonal, injecta ble, preservative free 01/15/2025,12/27/2023 Measles 10/13/1965 Mumps 07/25/1965 Pfizer Covid-19 Vaccine 12y+ , Ross Protein, PF, Ulysses-Sucrose 01/15/2025,12/27/2023 Pfizer-BioNTech COVID-19 Biv alent (Dixon Cap) 12+ years (ulysses-sucrose) 01/16/2022 Pfizer-BioNTech COVID-19 Vac cine (Angulo Cap) 12+ years (ulysses-sucrose) 09/12/2021 [id number] COVID-19 Vac cine (Purple Cap) 12+ 01/17/2021,05/25/2020,05/03/2020 Polio, Unspecified 10/18/1970,12/12/1966 Family History Medical History Relation Name Comments [...] Vaccines (3 - Tdap) 12/17/1983 11/21/1968, 12/12/1966 CT Colonography 2009 FIT-DNA 2009 FIT 2009 FOBT 2009 Sigmoidoscopy 2009 [facility]-Pneumococcal Vaccine: 50+ Years (1 of 1 - PCV) 2014 [facility]-Zoster Vaccines (1 of 2) 2014 Colonoscopy 09/06/2027 09/05/2017 [facility]-Colorectal Cancer Screening 09/06/2027 [facility]-RSV Vaccine: 60+ Years or (1 - 1-dose 75+ series) 12/17/2039 [facility]-IPV Vaccines Aged Out 10/18/1970, 12/12/1966 N o longer eligible based on patient's age to complete this topic [id number] Vaccine Completed 01/15/2025, 12/27/2023, 01/07/2023, Additional history exists [facility]-Influenza Vaccine Completed 01/15/2025 , 12/27/2023, 01/07/2023, Additional history exists HPV Vaccines Aged Out No longer eligi ble based on patient's age to complete this topic [facility]-HIB Vaccines Aged Out No longer e [...] Narrative 09/05/2017 Ordered by an unspecified provider. us Historical Provider GI PROCEDURE ORDERABLES Fiorella l Result from Last 3 Months or Most Recently Relevant to Health Maintenance Care Teams Healthcare Consulting Manager Relationship Specialty Start Date End Date Donnie Acuna MD [address] [place] [address] PCP - General 09/02/20
[2025-02-20 09:00] LABS: Coronavirus 19, PCR Not Detected (NotDetected); Influenza A, PCR Not Detected (NotDetected); Influenza B, PCR Not Detected (NotDetected)
[2025-02-20 09:02] VITALS: BP 162/86; PULSE 67; O2SAT 98
--- NOTE | 2025-02-20 09:07 | XR_ITS ---
PROCEDURE INFORMATION: Exam: XR Chest Exam date and time: 02/20/2025 9:04 AM Age: 59 years old Clinical indication: Cough and shortness of breath TECHNIQUE: Imaging protocol: Radiologic exam of the chest. Views: 2 views. COMPARISON: No relevant prior studies available. FINDINGS: Lungs: Unremarkable. No consolidation. Pleural spaces: Unremarkable. No pleural effusion. No pneumothorax. Heart/Mediastinum: Unremarkable. No cardiomegaly. Bones/joints: Unremarkable. IMPRESSION: No acute findings.
--- NOTE | 2025-02-20 09:08 | HMH.EDGENADL ---
Discharge Plan Disposition Patient Disposition: Home, Self-Care Prescriptions Prescriptions: New benzonatate 100 mg capsule 100 mg PO TID PRN (Reason: cough) 5 Days Qty: 20 0RF tqqfaxxqkofysuw-kwphazdon-HN 2-30-10 mg/5 mL syrup 5 ml PO Q6H PRN (Reason: cold symptoms) 7 Days Qty: 118 0RF No Action latanoprost 0.005 % drops 1 drp Eye-Both DAILY ibuprofen 800 mg tablet 800 mg PO BID Qty: 60 3RF hydrocodone-acetaminophen 5-325 mg tablet 1 tab PO Q4-6H PRN (Reason: pain) 7 Days Qty: 30 0RF ondansetron 4 mg tablet,disintegrating 4 mg PO Q6H Qty: 30 2RF sulfamethoxazole-trimethoprim [Bactrim DS] 800-160 mg tablet 1 tab PO BID Referrals Follow up/Referrals: Logan Velasquez MD [Primary Care Provider, Medical] - See instructions Activity Restrictions/Add. Instructions Additional Instructions/Restrictions: No evidence of pneumonia today COVID and flu test were also negative your symptoms are consistent with a viral upper respiratory infection which should be self-limiting. Remember though that you are still infectious as discussed. Return with any significant worsening of your symptoms. Clinical Impressions Clinical Impression: URI (upper respiratory infection) Instructions Patient Instructions: Cough Print Language Print Language: [place] Discharge ED Provider: Benito Valle General Adult HPI General Chief complaint: Cough Stated complaint: cough, chills Time Seen by Provider: 02/20/25 08:49 Mode of Arrival: Ambulatory Source of Information: Patient Description of Symptoms (Recalled from ER Triage Doc. by RN): Patient reports that he began to feel sick on Saturday with cough and congestion. States that on Saturday it started to feel as if it was going down into his chest. Denies fever, N/V/D. History of Present Illness HPI narrative: Patient is a previously healthy 59-year-old gentleman with only history of hypertension who presents today with 3 days of cough and congestion. Is concerned that it has been going down into his chest and 2 things he was very specifically were concerned about where pneumonia and the possibility of having COVID or flu etc. States he is around the [facility] patients and children at times and just wanted to make sure he was not infectious. Denies any fevers. Denies any significant shortness of breath or any other symptoms. No history of any cardiopulmonary diseases in the past. Related Data Home Medications ?Medication ?Instructions ?Recorded ?Confirmed latanoprost 0.005 % eye drops 1 drp Eye-Both DAILY eyes 09/13/22 10/01/22 sulfamethoxazole 800 1 tab PO BID antibiotic 09/13/22 10/01/22 mg-trimethoprim 160 mg tablet (Bactrim DS) Previous Rx's ?Medication ?Instructions ?Recorded hydrocodone 5 mg-acetaminophen 325 1 tab PO Q4-6H PRN pain 7 days #30 09/13/22 mg tablet tabs ibuprofen 800 mg tablet 800 mg PO BID pain, mild #60 tabs 09/13/22 ondansetron 4 mg disintegrating 4 mg PO Q6H nausea and vomiting 09/13/22 tablet #30 tabs benzonatate 100 mg capsule 100 mg PO TID PRN cough 5 days #20 02/20/25 caps grhzkhcyiczrpmh-rsejcgdnlgqqjjk-CJ 5 ml PO Q6H PRN cold symptoms 7 02/20/25 2 mg-30 mg-10 mg/5 mL oral syrup days #118 mL Allergies Allergy/AdvReac Type Severity Reaction Status Date / Time No Known Allergies Allergy Verified 10/01/22 08:48 [facility] Disclaimer: The information contained in this section may have been updated after the patient was seen, as this information can be updated by other users. Medical History Glaucoma Surgical History No history of previous surgery Family History Father Cancer Social History Smoking Status: Never smoker alcohol intake: never current occupational status: employed Travel in the last 8 weeks?: None Have you lived/traveled outside [place] in past 30 days?: No Contact w/someone who lives/traveled outside US past 30 days?: No Exposure to someone with infectious disease in past 14 days?: No Do you have a fever (greater than 100.4 F or 38 C)?: No Have you tested positive for COVID-19?: No Exposed to someone with COVID-19 in past 14 days?: No Do you have a sore throat?: No Do you have a cough?: No Do you have any weakness?: No Do you have any diarrhea?: No Are you experiencing any unusual bleeding?: No Do you have any muscle aches/pain?: No Do you have any abdominal pain?: No Are you experiencing loss of taste or smell?: No Other Medical History Have you received the Flu Vaccine for this season: Yes Have you received the Pneumonia Vaccine: Yes ROS Obtained: Yes All systems reviewed & no additional complaints except as documented Physical Exam General General appearance: in no apparent distress Respiratory Respiratory exam: Present normal lung sounds bilaterally and other (Oxygen saturation is 99% on room air normal lung auscultation exam); Absent respiratory distress Cardiovascular Cardiovascular exam: Present regular rate and normal rhythm Neurological Exam Neurological exam: Present alert and oriented X3 Medical Decision Making Medical Records Screening: Per USPSTF and CDC recommendations, given the prevalence of disease in our region, it is our hospital?s policy to screen for HIV and viral Hepatitis for all patients aged 18 and over and those with ongoing risk factors. Jorge Inquiry Pt receiving controlled substance: No Vital Signs: 02/20/25 08:51 02/20/25 09:02 02/20/25 09:30 Temperature 98.1 F Temperature Source Oral Pulse Rate 67 64 Pulse Rate [Radial] 71 Respiratory Rate 18 Blood Pressure 162/86 H 155/84 H Blood Pressure [Right Arm] 150/79 H Blood Pressure Mean [Right Arm] 102 Blood Pressure Source [Right Arm] Automatic Cuff Blood Pressure Position [Right Arm] Sitting 02 Sat by Pulse Oximetry 95 98 95 Oxygen Delivery Method Room Air Room Air Room Air 02/20/25 10:01 Temperature Temperature Source Pulse Rate 62 Pulse Rate [Radial] Respiratory Rate Blood Pressure 146/71 H Blood Pressure [Right Arm] Blood Pressure Mean [Right Arm] Blood Pressure Source [Right Arm] Blood Pressure Position [Right Arm] 02 Sat by Pulse Oximetry 95 Oxygen Delivery Method Room Air Lab Data Lab results reviewed: Yes I reviewed the patient's lab results. Lab Results 02/20/25 08:52: SARS-CoV-2 (PCR) Not detected, Influenza A Untype (PCR) Not detected, Influenza Type B (PCR) Not detected Orders (Tests/Meds): ORDERS Category Date Time Status Chest XR 2 view (NOT portable) [XR chest 2V] Stat Exams 02/20/25 09:07 Completed HIV Combo Stat Lab 02/20/25 08:54 Ordered Hepatitis C Ab Qual. W/ RFX Stat Lab 02/20/25 08:54 Ordered Rapid PCR Covid and Flu A/B Stat Lab 02/20/25 08:52 Completed Medical Decision Narrative: Very well-appearing 59-year-old male presenting today with URI symptoms. I have a low pretest probability for pneumonia however that is his main concern we will get a two-view chest x-ray to rule out any focal consolidation. With regards to antiviral medications I discussed with him that his symptoms been ongoing for 3 days that he is not high risk therefore antiviral medications will not be indicated. COVID and flu have been ordered from an epidemiology standpoint as he is concerned about the possibility of spreading this to high risk patients that he is around. I did inform him that he is infectious regardless as he has symptoms consistent with a viral syndrome regardless of the test results that we get back. Treatment will be supportive assuming he does not have any evidence of a bacterial pneumonia. Reassessment 10:34 AM chest x-ray performed I personally interpreted shows no focal consolidation radiology read consistent with this as well COVID and flu are negative supportive care discussed this is consistent with a viral upper respiratory infection should be self-limiting. Critical Care Critical Care Time Critical Care Time: No
[2025-02-20 09:30] VITALS: BP 155/84; PULSE 64; O2SAT 95
[2025-02-20 10:01] VITALS: BP 146/71; PULSE 62; O2SAT 95
[2025-02-20 10:37] VITALS: BP 146/78; PULSE 57; RESP 16; TEMP 36.7; O2SAT 95
== END 2025-02-20 10:38 | disposition home or self-care (01) ==
PROVIDERS: Emergency Provider Student in an Organized Health Care Education/Training Program; PCP Family Medicine
DX: J06.9 Acute upper respiratory infection, unspecified (principal); R05.9 Cough, unspecified
CPT/HCPCS: 71046; 87636; 99283; 99284